=== PATIENT | female | born 1970 | race Caucasian/White ===

== ENCOUNTER 2017-05-11 12:37 | Inpatient (IN) | payer MEDICARE, MEDICAID ==
[~2017-05-11] VITALS: Ht 162.6 cm; Wt 67.6 kg
[2017-05-11 15:54] VITALS: BP 92/63
[2017-05-11] MEDS ORDERED: ZOLPIDEM TARTRATE 10 MG TABLET PO PRN (16:00)
[2017-05-11] MEDS ORDERED: HALOPERIDOL 5 MG TABLET PO PRN (16:00)
[2017-05-11] MEDS ORDERED: LORazepam 2 MG TABLET PO PRN (16:00)
[2017-05-11] MEDS ORDERED: LITH300C3 PO (16:25)
[2017-05-11] MEDS ORDERED: PNEUMOCOCCAL VACCINE POLYVALENT 0.5 ML VIAL [PPSV23] IM ONE (16:45)
[2017-05-12 05:47] VITALS: BP 130/80
[2017-05-12] MEDS: ARIPiprazole 10 MG TABLET PO SCH (09:00)
[2017-05-12] MEDS: LITHIUM CARBONATE 300 MG CAPSULE PO SCH ×3 (09:00→17:47)
[2017-05-12] MEDS ORDERED: IBUPROFEN 400 MG TABLET PO PRN (17:00)
[2017-05-12] MEDS ORDERED: ACETAMINOPHEN 325 MG TABLET PO PRN (17:00)
[2017-05-13] MEDS: ARIPiprazole 10 MG TABLET PO SCH (08:41)
[2017-05-13] MEDS: LITHIUM CARBONATE 300 MG CAPSULE PO SCH ×2 (08:41→16:23)
[2017-05-14] MEDS: LITHIUM CARBONATE 300 MG TABLET PO SCH ×2 (08:19→16:34)
[2017-05-14] MEDS: ARIPiprazole 10 MG TABLET PO SCH (08:20)
[2017-05-14] MEDS ORDERED: TUBERCULIN, PURIFIED PROTEIN DERIVATIVE 5 TU/0.1 ML SYG ID ONE (14:15)
[2017-05-15] MEDS: LITHIUM CARBONATE 300 MG TABLET PO SCH ×2 (09:00→16:13)
[2017-05-15] MEDS: ARIPiprazole 10 MG TABLET PO SCH (09:00)
[2017-05-16] MEDS: LITHIUM CARBONATE 300 MG TABLET PO SCH ×2 (08:42→16:41)
[2017-05-16] MEDS: ARIPiprazole 10 MG TABLET PO SCH (08:42)
[2017-05-17] MEDS: LITHIUM CARBONATE 300 MG TABLET PO SCH ×2 (09:00→16:43)
[2017-05-17] MEDS: ARIPiprazole 10 MG TABLET PO SCH (09:00)
[2017-05-18] MEDS ORDERED: ARIPiprazole 10 MG TABLET PO SCH (09:00)
[2017-05-18] MEDS: ARIPiprazole 15 MG TABLET PO SCH (09:19)
[2017-05-18] MEDS: LITHIUM CARBONATE 300 MG TABLET PO SCH ×2 (09:19→16:26)
[2017-05-18] MEDS: LORazepam 0.5 MG TABLET PO SCH (17:48)
[2017-05-19] MEDS: ARIPiprazole 15 MG TABLET PO SCH (09:32)
[2017-05-19] MEDS: LORazepam 0.5 MG TABLET PO SCH ×2 (09:32→16:41)
[2017-05-20] MEDS: LORazepam 0.5 MG TABLET PO SCH (08:29)
[2017-05-20] MEDS: ARIPiprazole 15 MG TABLET PO SCH (08:29)
[2017-05-20] MEDS ORDERED: ARIP15TA2 PO (11:24)
[2017-05-20] MEDS ORDERED: LORA0.5T2 PO (11:24)
== END 2017-05-20 17:00 | disposition home or self-care (01) | DRG 885 ==
LOC: B2X 16:01
PROVIDERS: ADMIT Psychiatry & Neurology Psychiatry; ATTEND Psychiatry & Neurology Psychiatry
DX: F20.0 Paranoid schizophrenia (principal); I95.9 Hypotension, unspecified; Z91.14 Patient's other noncompliance with medication regimen; I10 Essential (primary) hypertension; R45.87 Impulsiveness; Z79.899 Other long term (current) drug therapy

== ENCOUNTER 2017-05-23 12:40 | Inpatient (IN) | payer MEDICARE, MEDICAID ==
[~2017-05-23] VITALS: Ht 162.6 cm; Wt 70.3 kg
[~2017-05-23 12:40] MED LIST: ARIP15TA2 PO; LORA0.5T2 PO
[2017-05-23 13:32] LABS: HEMATOCRIT 31.4 % (36-46); HEMOGLOBIN 10.7 g/dL (12.0-16.0); MEAN CORPUSCULAR HEMOGLOBIN 31.8 pg (26.0-34.0); MEAN CORPUSCULAR HGB CONC 34.1 G/dL (31.0-37.0); MEAN CORPUSCULAR VOLUME 93 fL (80-100); PLATELET COUNT (AUTO) 363 K/uL (150-450); RED BLOOD CELL COUNT(AUTO) 3.37 MIL/uL (4.00-5.20); RED CELL DISTRIBUTION WIDTH 15.4 % (11.5-14.5)
[2017-05-23 13:33] LABS: GLUCOSE,POINT OF CARE 85 MG/DL (70-110)
[2017-05-23 13:40] LABS: ANION GAP 9 mmol/L (8-16); CALCIUM, TOTAL 9.2 mg/dL (8.8-10.5); CARBON DIOXIDE 25 mmol/L (22-29); CHLORIDE 101 mmol/L (98-107); CREATININE 0.53 mg/dL (0.60-1.30); GLOMERULAR FILTR. RATE CALC > 60 mL/min (>60); GLUCOSE,RANDOM 99 mg/dL (70-110); POTASSIUM 3.9 mmol/L (3.5-5.1); SODIUM SERUM 135 mmol/L (136-145); UREA NITROGEN, BLOOD 15 mg/dL (7-18)
[2017-05-23 13:46] LABS: ALANINE AMINOTRANSFERASE 302 U/L (12-78); ALBUMIN 2.7 g/dL (3.4-5.0); ASPARTATE AMINOTRANSFERASE 166 U/L (15-37); BILIRUBIN,TOTAL 10.7 mg/dL (0.1-1.0); TOTAL PROTEIN, SERUM 7.2 g/dL (6.4-8.2)
[2017-05-23 13:49] LABS: BAND NEUTROPHILS % (MANUAL) 1 % (1-5); EOSINOPHILS % (MANUAL) 3 % (1-6); LYMPHOCYTES % (MANUAL) 18 % (22-44); MONOCYTES % (MANUAL) 3 % (2-9); SEGMENTED NEUTROPHILS % 75 % (40-70)
[2017-05-23 13:50] LABS: PLATELET MORPHOLOGY COMMENT LARGE PLTS PRESENT
[2017-05-23 14:28] LABS: ALKALINE PHOSPHATASE 1694 U/L (46-116)
[2017-05-23 16:18] LABS: GLUCOSE, URINE (UA) NEGATIVE (NEGATIVE); KETONES,URINE TRACE mg/dL (NEGATIVE); LEUKOCYTE ESTERASE ,URINE MODERATE (NEGATIVE); NITRATE,URINE POSITIVE (NEGATIVE); OCCULT BLOOD,URINE NEGATIVE (NEGATIVE); PROTEIN,URINE TRACE (NEGATIVE)
[2017-05-23 16:45] LABS: CREATINE KINASE, TOTAL 54 U/L (26-192); LIPASE 38 U/L (73-393)
[2017-05-23 16:49] LABS: APPEARANCE,URINE HAZY (CLEAR); BILIRUBIN,URINE PRELIM. POSITIVE (NEGATIVE)
[2017-05-23 16:50] LABS: BACTERIA,URINE Moderate /HPF (None Seen); RBC,URINE 0-2 /HPF (0-2); SQUAMOUS EPITHELIAL CELL,UR Rare /LPF (None Seen)
[2017-05-23] MEDS ORDERED: CEPHALEXIN MONOHYDRATE 500 MG CAPSULE PO ONE (17:15)
[2017-05-23 18:59] LABS: AMPHET/METH SCREEN,URINE NEGATIVE (NEGATIVE); BARBITURATE SCREEN, URINE NEGATIVE (NEGATIVE); BENZODIAZEPINES SCREEN,URINE NEGATIVE (NEGATIVE); CANNABINOID SCREEN,URINE NEGATIVE (NEGATIVE); COCAINE SCREEN,URINE NEGATIVE (NEGATIVE); METHADONE SCREEN, URINE NEGATIVE (NEGATIVE); OPIATE SCREEN,URINE NEGATIVE (NEGATIVE)
[2017-05-23 19:00] LABS: PHENCYCLIDINE SCREEN,URINE NEGATIVE (NEGATIVE)
[2017-05-24] MEDS: CIPROFLOXACIN HCL 500 MG TABLET PO SCH ×2 (08:57→16:41)
[2017-05-24] MEDS: LORazepam 0.5 MG TABLET PO SCH (16:41)
[2017-05-24] MEDS ORDERED: LORazepam 0.5 MG TABLET PO SCH (17:00)
[2017-05-25 06:39] VITALS: BP 126/81
[2017-05-25 09:00] VITALS: BP 100/60
[2017-05-25] MEDS ORDERED: ARIPiprazole 15 MG TABLET PO SCH ×2 (09:00)
[2017-05-25] MEDS: LORazepam 0.5 MG TABLET PO SCH ×2 (09:28→17:30)
[2017-05-25] MEDS: CIPROFLOXACIN HCL 500 MG TABLET PO SCH ×2 (09:28→17:30)
[2017-05-25] MEDS: ARIPiprazole 15 MG TABLET PO SCH (09:28)
[2017-05-26 03:53] VITALS: BP 101/66
[2017-05-26] MEDS: CIPROFLOXACIN HCL 500 MG TABLET PO SCH ×2 (10:56→16:24)
[2017-05-26] MEDS: ARIPiprazole 15 MG TABLET PO SCH (10:56)
[2017-05-26] MEDS: LORazepam 0.5 MG TABLET PO SCH ×2 (10:57→16:24)
[2017-05-26] MEDS: RisperiDONE 1 MG TABLET PO SCH ×2 (10:57→16:24)
[2017-05-26 16:49] VITALS: BP 117/77
[2017-05-27] MEDS: HALOPERIDOL 5 MG TABLET PO PRN ×2 (04:47→21:05)
[2017-05-27] MEDS: ARIPiprazole 15 MG TABLET PO SCH (09:11)
[2017-05-27] MEDS: LORazepam 0.5 MG TABLET PO SCH ×2 (09:11→17:08)
[2017-05-27] MEDS: RisperiDONE 2 MG TABLET PO SCH ×2 (09:11→17:09)
[2017-05-27] MEDS: CIPROFLOXACIN HCL 500 MG TABLET PO SCH ×2 (09:11→17:08)
[2017-05-27 09:35] VITALS: BP 122/69
[2017-05-27] MEDS ORDERED: BARIUM SULFATE 0.1% SUSPENSION 450 ML BOTTLE ONE ×2 (13:41→13:45)
[2017-05-27] MEDS ORDERED: SODIUM CHLORIDE 0.9% 100 ML ONE (13:41)
[2017-05-27] MEDS ORDERED: IOVERSOL 350 MG/ML 100 ML VIAL ONE (13:41)
[2017-05-27] MEDS: LORazepam 2 MG TABLET PO PRN (21:05)
[2017-05-27 21:14] VITALS: BP 117/73
[2017-05-27] MEDS: ZOLPIDEM TARTRATE 10 MG TABLET PO PRN (22:09)
[2017-05-28 02:25] VITALS: BP 98/68
[2017-05-28 07:13] LABS: INR 1.1 (0.9-1.1); PROTHROMBIN TIME 11.2 SEC (9.4-11.6)
[2017-05-28 07:40] LABS: ALANINE AMINOTRANSFERASE 265 U/L (12-78); ALBUMIN 2.4 g/dL (3.4-5.0); ANION GAP 10 mmol/L (8-16); ASPARTATE AMINOTRANSFERASE 170 U/L (15-37); BILIRUBIN,TOTAL 9.3 mg/dL (0.1-1.0); CALCIUM, TOTAL 8.9 mg/dL (8.8-10.5); CARBON DIOXIDE 23 mmol/L (22-29); CHLORIDE 100 mmol/L (98-107); GLOMERULAR FILTR. RATE CALC > 60 mL/min (>60); GLUCOSE,RANDOM 122 mg/dL (70-110); POTASSIUM 3.8 mmol/L (3.5-5.1); SODIUM SERUM 133 mmol/L (136-145); TOTAL PROTEIN, SERUM 6.9 g/dL (6.4-8.2); UREA NITROGEN, BLOOD 14 mg/dL (7-18)
[2017-05-28 08:22] LABS: ALKALINE PHOSPHATASE 2073 U/L (46-116)
[2017-05-28] MEDS: LORazepam 0.5 MG TABLET PO SCH ×2 (09:24→17:03)
[2017-05-28] MEDS: RisperiDONE 2 MG TABLET PO SCH ×2 (09:24→17:03)
[2017-05-28] MEDS: ARIPiprazole 15 MG TABLET PO SCH (09:24)
[2017-05-28] MEDS: CIPROFLOXACIN HCL 500 MG TABLET PO SCH ×2 (09:24→17:03)
[2017-05-28 10:38] VITALS: BP 108/61
[2017-05-28] MEDS ORDERED: BARIUM SULFATE 0.1% SUSPENSION 450 ML BOTTLE ONE (11:01)
[2017-05-28] MEDS ORDERED: IOVERSOL 350 MG/ML 150 ML VIAL ONE (13:36)
[2017-05-28] MEDS ORDERED: SODIUM CHLORIDE 0.9% 100 ML ONE (13:36)
[2017-05-28 16:00] VITALS: BP 109/73
[2017-05-28] MEDS: HALOPERIDOL 5 MG TABLET PO PRN (20:57)
[2017-05-28] MEDS: LORazepam 2 MG TABLET PO PRN (20:57)
[2017-05-28] MEDS: ZOLPIDEM TARTRATE 10 MG TABLET PO PRN (22:56)
[2017-05-29 00:45] VITALS: BP 118/81
[2017-05-29 08:15] VITALS: BP 116/68
[2017-05-29] MEDS: CIPROFLOXACIN HCL 500 MG TABLET PO SCH ×2 (09:28→17:40)
[2017-05-29] MEDS: ARIPiprazole 15 MG TABLET PO SCH (09:28)
[2017-05-29] MEDS: RisperiDONE 2 MG TABLET PO SCH ×2 (09:28→17:41)
[2017-05-29] MEDS: LORazepam 0.5 MG TABLET PO SCH ×2 (09:28→17:41)
[2017-05-29 17:00] VITALS: BP 102/66
[2017-05-30 00:30] VITALS: BP 122/73
[2017-05-30] MEDS: LORazepam 0.5 MG TABLET PO SCH ×2 (09:07→16:50)
[2017-05-30] MEDS: ARIPiprazole 15 MG TABLET PO SCH (09:07)
[2017-05-30] MEDS: RisperiDONE 2 MG TABLET PO SCH (09:07)
[2017-05-30] MEDS: CIPROFLOXACIN HCL 500 MG TABLET PO SCH ×2 (09:07→16:50)
[2017-05-30] MEDS ORDERED: GADOBUTROL 1 MMOL/ML 10 ML VIAL IVP ONE (14:09)
[2017-05-30] MEDS: RisperiDONE 3 MG TABLET PO SCH (16:50)
[2017-05-31] MEDS: ARIPiprazole 15 MG TABLET PO SCH (09:00)
[2017-05-31] MEDS: RisperiDONE 3 MG TABLET PO SCH ×2 (09:00→16:30)
[2017-05-31] MEDS: LORazepam 0.5 MG TABLET PO SCH ×2 (09:00→16:30)
[2017-06-01] MEDS: RisperiDONE 3 MG TABLET PO SCH ×2 (09:29→15:57)
[2017-06-01] MEDS: LORazepam 0.5 MG TABLET PO SCH ×2 (09:29→15:57)
[2017-06-01] MEDS: ARIPiprazole 15 MG TABLET PO SCH (09:29)
[2017-06-02 03:11] VITALS: BP 97/66
[2017-06-02 06:59] LABS: ALANINE AMINOTRANSFERASE 274 U/L (12-78); ALBUMIN 2.3 g/dL (3.4-5.0); ANION GAP 9 mmol/L (8-16); ASPARTATE AMINOTRANSFERASE 174 U/L (15-37); BILIRUBIN,TOTAL 8.6 mg/dL (0.1-1.0); CARBON DIOXIDE 25 mmol/L (22-29); CHLORIDE 100 mmol/L (98-107); CREATININE 0.43 mg/dL (0.60-1.30); GLOMERULAR FILTR. RATE CALC > 60 mL/min (>60); GLUCOSE,RANDOM 80 mg/dL (70-110); POTASSIUM 3.8 mmol/L (3.5-5.1); SODIUM SERUM 134 mmol/L (136-145); TOTAL PROTEIN, SERUM 6.6 g/dL (6.4-8.2); UREA NITROGEN, BLOOD 15 mg/dL (7-18)
[2017-06-02 07:46] LABS: ALKALINE PHOSPHATASE 2175 U/L (46-116)
[2017-06-02 08:30] VITALS: BP 124/72
[2017-06-02] MEDS: RisperiDONE 3 MG TABLET PO SCH ×2 (09:28→16:17)
[2017-06-02] MEDS: ARIPiprazole 15 MG TABLET PO SCH (09:29)
[2017-06-02] MEDS: LORazepam 0.5 MG TABLET PO SCH ×2 (09:29→16:17)
[2017-06-03 01:05] VITALS: BP 136/91
[2017-06-03] MEDS: ZOLPIDEM TARTRATE 10 MG TABLET PO PRN (01:09)
[2017-06-03] MEDS: LORazepam 2 MG TABLET PO PRN ×2 (01:09→20:27)
[2017-06-03] MEDS: RisperiDONE 3 MG TABLET PO SCH ×2 (08:26→16:09)
[2017-06-03] MEDS: ARIPiprazole 15 MG TABLET PO SCH (08:26)
[2017-06-03] MEDS: LORazepam 0.5 MG TABLET PO SCH ×2 (08:26→16:09)
[2017-06-03 08:46] VITALS: BP 126/78
[2017-06-03] MEDS: URSODIOL 500 MG TABLET PO SCH ×2 (12:35→16:09)
[2017-06-03 17:10] VITALS: BP 121/74
[2017-06-04 02:10] VITALS: BP 96/56
[2017-06-04] MEDS: ARIPiprazole 15 MG TABLET PO SCH (09:01)
[2017-06-04] MEDS: LORazepam 0.5 MG TABLET PO SCH ×2 (09:02→17:01)
[2017-06-04] MEDS: RisperiDONE 3 MG TABLET PO SCH ×2 (09:02→17:01)
[2017-06-04] MEDS: URSODIOL 500 MG TABLET PO SCH ×3 (09:02→17:01)
[2017-06-04 19:44] VITALS: BP 116/76
[2017-06-05] MEDS: LORazepam 2 MG TABLET PO PRN (04:51)
[2017-06-05] MEDS: HALOPERIDOL 5 MG TABLET PO PRN (04:51)
[2017-06-05 05:39] VITALS: BP 121/78
[2017-06-05] MEDS: RisperiDONE 3 MG TABLET PO SCH ×2 (08:15→16:20)
[2017-06-05] MEDS: ARIPiprazole 15 MG TABLET PO SCH (08:15)
[2017-06-05] MEDS: LORazepam 0.5 MG TABLET PO SCH ×2 (08:15→16:20)
[2017-06-05] MEDS: URSODIOL 500 MG TABLET PO SCH ×3 (08:15→16:20)
[2017-06-05 18:44] VITALS: BP 112/74
[2017-06-06] MEDS: ZOLPIDEM TARTRATE 10 MG TABLET PO PRN (00:51)
[2017-06-06] MEDS: HALOPERIDOL 5 MG TABLET PO PRN (00:51)
[2017-06-06 00:53] VITALS: BP 108/72
[2017-06-06] MEDS: LORazepam 2 MG TABLET PO PRN (04:38)
[2017-06-06] MEDS: RisperiDONE 3 MG TABLET PO SCH ×2 (08:23→16:30)
[2017-06-06] MEDS: ARIPiprazole 15 MG TABLET PO SCH (08:24)
[2017-06-06] MEDS: URSODIOL 500 MG TABLET PO SCH ×3 (08:24→16:30)
[2017-06-06] MEDS: LORazepam 0.5 MG TABLET PO SCH ×2 (08:24→16:30)
[2017-06-06 09:35] VITALS: BP 137/84
[2017-06-07] MEDS: ZOLPIDEM TARTRATE 10 MG TABLET PO PRN (00:01)
[2017-06-07] MEDS: LORazepam 2 MG TABLET PO PRN (00:01)
[2017-06-07 00:03] VITALS: BP 123/65
[2017-06-07] MEDS: RisperiDONE 3 MG TABLET PO SCH ×2 (07:51→16:13)
[2017-06-07] MEDS: ARIPiprazole 15 MG TABLET PO SCH (07:51)
[2017-06-07] MEDS: LORazepam 0.5 MG TABLET PO SCH ×2 (07:51→16:13)
[2017-06-07] MEDS: URSODIOL 500 MG TABLET PO SCH ×3 (07:52→16:13)
[2017-06-07 10:21] VITALS: BP 90/55
[2017-06-07] MEDS: BACITRACIN 28.4 GM OINTMENT TP SCH (16:13)
[2017-06-07 19:49] VITALS: BP 122/72
[2017-06-07] MEDS: BENZOCAINE/MENTHOL LOZENGE [8 LOZENGES/PACKET] PO PRN (23:40)
[2017-06-08 00:10] VITALS: BP 110/71
[2017-06-08] MEDS: LORazepam 2 MG TABLET PO PRN ×3 (00:33→20:25)
[2017-06-08] MEDS: RisperiDONE 3 MG TABLET PO SCH ×2 (08:39→16:21)
[2017-06-08] MEDS: LORazepam 0.5 MG TABLET PO SCH ×2 (08:39→16:21)
[2017-06-08] MEDS: ARIPiprazole 15 MG TABLET PO SCH (08:39)
[2017-06-08] MEDS: BENZOCAINE/MENTHOL LOZENGE [8 LOZENGES/PACKET] PO PRN ×2 (08:40→16:45)
[2017-06-08] MEDS: BACITRACIN 28.4 GM OINTMENT TP SCH ×2 (08:40→16:22)
[2017-06-08] MEDS: URSODIOL 500 MG TABLET PO SCH ×3 (08:40→16:21)
[2017-06-08] MEDS: HALOPERIDOL 5 MG TABLET PO PRN (10:02)
[2017-06-08 17:00] VITALS: BP 122/71
[2017-06-09 02:00] VITALS: BP 124/76
[2017-06-09] MEDS: BENZOCAINE/MENTHOL LOZENGE [8 LOZENGES/PACKET] PO PRN ×2 (02:53→15:42)
[2017-06-09 08:05] VITALS: BP 96/64
[2017-06-09] MEDS: ARIPiprazole 15 MG TABLET PO SCH (08:26)
[2017-06-09] MEDS: LORazepam 0.5 MG TABLET PO SCH ×2 (08:27→17:08)
[2017-06-09] MEDS: RisperiDONE 3 MG TABLET PO SCH ×2 (08:27→17:08)
[2017-06-09] MEDS: URSODIOL 500 MG TABLET PO SCH ×3 (08:27→17:08)
[2017-06-09] MEDS: BACITRACIN 28.4 GM OINTMENT TP SCH ×2 (09:00→17:07)
[2017-06-09 17:03] VITALS: BP 114/75
[2017-06-09] MEDS: HALOPERIDOL 5 MG TABLET PO PRN (19:14)
[2017-06-09] MEDS: LORazepam 2 MG TABLET PO PRN (19:14)
[2017-06-10] MEDS: VIT E ACET/GLY/DIMETH/WATER 236 ML LOTION TP PRN (01:41)
[2017-06-10] MEDS: LORazepam 2 MG TABLET PO PRN (01:42)
[2017-06-10] MEDS: ZOLPIDEM TARTRATE 10 MG TABLET PO PRN ×2 (01:42→20:24)
[2017-06-10] MEDS: BENZOCAINE/MENTHOL LOZENGE [8 LOZENGES/PACKET] PO PRN ×2 (02:17→16:38)
[2017-06-10 02:42] VITALS: BP 106/64
[2017-06-10 08:00] VITALS: BP 112/61
[2017-06-10] MEDS: LORazepam 0.5 MG TABLET PO SCH ×2 (10:30→16:01)
[2017-06-10] MEDS: URSODIOL 500 MG TABLET PO SCH ×3 (10:30→16:01)
[2017-06-10] MEDS: ARIPiprazole 15 MG TABLET PO SCH (10:31)
[2017-06-10] MEDS: RisperiDONE 3 MG TABLET PO SCH ×2 (10:31→16:01)
[2017-06-10] MEDS: BACITRACIN 28.4 GM OINTMENT TP SCH ×2 (12:12→16:01)
[2017-06-10 22:20] VITALS: BP 102/68
[2017-06-11 02:42] VITALS: BP 117/77
[2017-06-11] MEDS: BENZOCAINE/MENTHOL LOZENGE [8 LOZENGES/PACKET] PO PRN (03:01)
[2017-06-11] MEDS: LORazepam 0.5 MG TABLET PO SCH ×2 (08:12→16:57)
[2017-06-11] MEDS: RisperiDONE 3 MG TABLET PO SCH ×2 (08:12→16:58)
[2017-06-11] MEDS: URSODIOL 500 MG TABLET PO SCH ×3 (08:12→16:59)
[2017-06-11] MEDS: ARIPiprazole 15 MG TABLET PO SCH (08:12)
[2017-06-11] MEDS: BACITRACIN 28.4 GM OINTMENT TP SCH ×2 (08:13→16:59)
[2017-06-11 08:50] VITALS: BP 125/69
[2017-06-12 01:21] VITALS: BP 117/73
[2017-06-12] MEDS: LORazepam 0.5 MG TABLET PO SCH ×2 (08:59→16:16)
[2017-06-12] MEDS: RisperiDONE 3 MG TABLET PO SCH ×2 (08:59→16:16)
[2017-06-12] MEDS: BACITRACIN 28.4 GM OINTMENT TP SCH ×2 (09:00→16:17)
[2017-06-12] MEDS: URSODIOL 500 MG TABLET PO SCH ×3 (09:00→16:17)
[2017-06-12] MEDS: BENZOCAINE/MENTHOL LOZENGE [8 LOZENGES/PACKET] PO PRN (09:00)
[2017-06-12] MEDS: ARIPiprazole 15 MG TABLET PO SCH (09:00)
[2017-06-13 01:29] VITALS: BP 95/56
[2017-06-13] MEDS: ZOLPIDEM TARTRATE 10 MG TABLET PO PRN ×2 (02:07→20:07)
[2017-06-13] MEDS: RisperiDONE 3 MG TABLET PO SCH ×2 (08:18→16:45)
[2017-06-13] MEDS: LORazepam 0.5 MG TABLET PO SCH ×2 (08:18→16:45)
[2017-06-13] MEDS: ARIPiprazole 15 MG TABLET PO SCH (08:18)
[2017-06-13] MEDS: URSODIOL 500 MG TABLET PO SCH ×3 (10:10→17:34)
[2017-06-13] MEDS: MUPIROCIN CALCIUM 2% 22 GM OINTMENT NASAL SCH (16:45)
[2017-06-14] MEDS: ARIPiprazole 15 MG TABLET PO SCH (08:19)
[2017-06-14] MEDS: RisperiDONE 3 MG TABLET PO SCH ×2 (08:20→16:42)
[2017-06-14] MEDS: URSODIOL 500 MG TABLET PO SCH ×3 (08:20→16:42)
[2017-06-14] MEDS: LORazepam 0.5 MG TABLET PO SCH ×2 (08:21→16:42)
[2017-06-14] MEDS: MUPIROCIN CALCIUM 2% 22 GM OINTMENT NASAL SCH ×2 (09:00→16:46)
[2017-06-14] MEDS ORDERED: ACETAMINOPHEN 325 MG TABLET PO PRN (17:30)
[2017-06-14 21:58] VITALS: BP 131/84
[2017-06-14] MEDS: ACETAMINOPHEN 325 MG TABLET PO PRN (21:58)
[2017-06-15] MEDS: MUPIROCIN CALCIUM 2% 22 GM OINTMENT NASAL SCH ×2 (09:00→16:18)
[2017-06-15] MEDS: RisperiDONE 3 MG TABLET PO SCH ×2 (09:01→16:17)
[2017-06-15] MEDS: LORazepam 0.5 MG TABLET PO SCH ×2 (09:01→16:17)
[2017-06-15] MEDS: ARIPiprazole 15 MG TABLET PO SCH (09:01)
[2017-06-15] MEDS: URSODIOL 500 MG TABLET PO SCH ×3 (09:01→16:18)
[2017-06-15] MEDS: BENZOCAINE/MENTHOL LOZENGE [8 LOZENGES/PACKET] PO PRN (12:29)
[2017-06-15 14:43] VITALS: BP 135/92
[2017-06-16] MEDS: URSODIOL 500 MG TABLET PO SCH ×3 (08:07→16:31)
[2017-06-16] MEDS: ARIPiprazole 15 MG TABLET PO SCH (08:07)
[2017-06-16] MEDS: MUPIROCIN CALCIUM 2% 22 GM OINTMENT NASAL SCH ×3 (08:07→17:00)
[2017-06-16] MEDS: LORazepam 0.5 MG TABLET PO SCH ×2 (08:07→16:31)
[2017-06-16] MEDS: RisperiDONE 3 MG TABLET PO SCH ×2 (08:07→16:31)
[2017-06-17] MEDS: RisperiDONE 3 MG TABLET PO SCH ×2 (08:33→16:29)
[2017-06-17] MEDS: LORazepam 0.5 MG TABLET PO SCH ×2 (08:33→16:29)
[2017-06-17] MEDS: MUPIROCIN CALCIUM 2% 22 GM OINTMENT NASAL SCH ×2 (08:34→16:29)
[2017-06-17] MEDS: ARIPiprazole 15 MG TABLET PO SCH (08:34)
[2017-06-17] MEDS: URSODIOL 500 MG TABLET PO SCH ×3 (10:35→16:29)
[2017-06-18] MEDS: ACETAMINOPHEN 325 MG TABLET PO PRN (04:34)
[2017-06-18] MEDS: LORazepam 0.5 MG TABLET PO SCH ×2 (08:24→16:30)
[2017-06-18] MEDS: RisperiDONE 3 MG TABLET PO SCH ×2 (08:24→16:30)
[2017-06-18] MEDS: ARIPiprazole 15 MG TABLET PO SCH (08:24)
[2017-06-18] MEDS: URSODIOL 500 MG TABLET PO SCH ×3 (08:24→16:30)
[2017-06-18] MEDS: MUPIROCIN CALCIUM 2% 22 GM OINTMENT NASAL SCH (08:31)
[2017-06-18] MEDS: BENZOCAINE/MENTHOL LOZENGE [8 LOZENGES/PACKET] PO PRN (11:28)
[2017-06-18] MEDS: HALOPERIDOL 5 MG TABLET PO PRN (12:21)
[2017-06-19] MEDS: BENZOCAINE/MENTHOL LOZENGE [8 LOZENGES/PACKET] PO PRN ×2 (01:11→19:53)
[2017-06-19 01:13] VITALS: BP 132/88
[2017-06-19] MEDS: RisperiDONE 3 MG TABLET PO SCH ×2 (08:42→16:05)
[2017-06-19] MEDS: LORazepam 0.5 MG TABLET PO SCH ×2 (08:43→16:05)
[2017-06-19] MEDS: ARIPiprazole 15 MG TABLET PO SCH (08:43)
[2017-06-19] MEDS: URSODIOL 500 MG TABLET PO SCH ×3 (08:43→16:06)
[2017-06-20 01:13] VITALS: BP 100/66
[2017-06-20 01:50] VITALS: BP 134/90
[2017-06-20] MEDS: ACETAMINOPHEN 325 MG TABLET PO PRN (01:57)
[2017-06-20] MEDS: LORazepam 0.5 MG TABLET PO SCH ×2 (08:43→16:13)
[2017-06-20] MEDS: RisperiDONE 3 MG TABLET PO SCH ×2 (08:43→16:13)
[2017-06-20] MEDS: ARIPiprazole 15 MG TABLET PO SCH (08:43)
[2017-06-20] MEDS: URSODIOL 500 MG TABLET PO SCH ×3 (08:44→16:13)
[2017-06-20] MEDS: BENZOCAINE/MENTHOL LOZENGE [8 LOZENGES/PACKET] PO PRN (15:55)
[2017-06-20] MEDS: DOCUSATE SODIUM 100 MG CAPSULE PO PRN (15:56)
[2017-06-20 17:00] VITALS: BP 140/83
[2017-06-21 05:20] VITALS: BP 113/71
[2017-06-21] MEDS: ACETAMINOPHEN 325 MG TABLET PO PRN (05:36)
[2017-06-21] MEDS: DOCUSATE SODIUM 100 MG CAPSULE PO PRN (05:36)
[2017-06-21 07:00] LABS: ALANINE AMINOTRANSFERASE 179 U/L (12-78); ALBUMIN 2.6 g/dL (3.4-5.0); ALKALINE PHOSPHATASE 958 U/L (46-116); ANION GAP 8 mmol/L (8-16); ASPARTATE AMINOTRANSFERASE 118 U/L (15-37); BILIRUBIN,TOTAL 7.8 mg/dL (0.1-1.0); CALCIUM, TOTAL 8.9 mg/dL (8.8-10.5); CARBON DIOXIDE 23 mmol/L (22-29); CHLORIDE 98 mmol/L (98-107); CREATININE 0.52 mg/dL (0.60-1.30); GLOMERULAR FILTR. RATE CALC > 60 mL/min (>60); GLUCOSE,RANDOM 100 mg/dL (70-110); SODIUM SERUM 129 mmol/L (136-145); TOTAL PROTEIN, SERUM 6.8 g/dL (6.4-8.2); UREA NITROGEN, BLOOD 15 mg/dL (7-18)
[2017-06-21] MEDS: URSODIOL 500 MG TABLET PO SCH ×3 (09:04→16:26)
[2017-06-21] MEDS: LORazepam 0.5 MG TABLET PO SCH ×2 (09:04→16:26)
[2017-06-21] MEDS: RisperiDONE 3 MG TABLET PO SCH ×2 (09:04→16:26)
[2017-06-21] MEDS: ARIPiprazole 15 MG TABLET PO SCH (09:05)
[2017-06-21] MEDS: BENZOCAINE/MENTHOL LOZENGE [8 LOZENGES/PACKET] PO PRN (15:48)
[2017-06-21 22:10] VITALS: BP 114/78
[2017-06-21] MEDS: ZOLPIDEM TARTRATE 10 MG TABLET PO PRN (22:22)
[2017-06-22 05:25] VITALS: BP 98/60
[2017-06-22] MEDS: ARIPiprazole 15 MG TABLET PO SCH (08:04)
[2017-06-22] MEDS: LORazepam 0.5 MG TABLET PO SCH ×2 (08:04→16:40)
[2017-06-22] MEDS: RisperiDONE 3 MG TABLET PO SCH ×2 (08:04→16:40)
[2017-06-22] MEDS: URSODIOL 500 MG TABLET PO SCH ×3 (08:05→17:07)
[2017-06-22 09:34] VITALS: BP 112/69
[2017-06-23 04:05] VITALS: BP 110/60
[2017-06-23] MEDS: VIT E ACET/GLY/DIMETH/WATER 236 ML LOTION TP PRN (04:18)
[2017-06-23] MEDS: ACETAMINOPHEN 325 MG TABLET PO PRN (04:18)
[2017-06-23] MEDS: ARIPiprazole 15 MG TABLET PO SCH (08:01)
[2017-06-23] MEDS: URSODIOL 500 MG TABLET PO SCH ×3 (08:01→17:20)
[2017-06-23] MEDS: RisperiDONE 3 MG TABLET PO SCH ×2 (08:01→17:21)
[2017-06-23] MEDS: LORazepam 0.5 MG TABLET PO SCH ×2 (08:01→17:21)
[2017-06-23 09:43] VITALS: BP 92/58
[2017-06-23] MEDS: SODIUM CHLORIDE 1 GM TABLET PO SCH ×2 (13:09→17:21)
[2017-06-24] MEDS: LORazepam 2 MG TABLET PO PRN (02:06)
[2017-06-24] MEDS: ZOLPIDEM TARTRATE 10 MG TABLET PO PRN (02:06)
[2017-06-24 02:15] VITALS: BP 118/68
[2017-06-24] MEDS: SODIUM CHLORIDE 1 GM TABLET PO SCH ×3 (08:17→16:55)
[2017-06-24] MEDS: RisperiDONE 3 MG TABLET PO SCH ×2 (08:17→16:55)
[2017-06-24] MEDS: LORazepam 0.5 MG TABLET PO SCH ×2 (08:17→16:54)
[2017-06-24] MEDS: ARIPiprazole 15 MG TABLET PO SCH (08:17)
[2017-06-24] MEDS: URSODIOL 500 MG TABLET PO SCH ×3 (08:17→16:55)
[2017-06-25 02:52] VITALS: BP 120/74
[2017-06-25] MEDS: LORazepam 2 MG TABLET PO PRN (02:52)
[2017-06-25] MEDS: ZOLPIDEM TARTRATE 10 MG TABLET PO PRN (02:52)
[2017-06-25] MEDS: URSODIOL 500 MG TABLET PO SCH ×3 (08:09→17:32)
[2017-06-25] MEDS: SODIUM CHLORIDE 1 GM TABLET PO SCH (08:09)
[2017-06-25] MEDS: LORazepam 0.5 MG TABLET PO SCH ×2 (08:09→17:32)
[2017-06-25] MEDS: RisperiDONE 3 MG TABLET PO SCH ×2 (08:09→17:32)
[2017-06-25] MEDS: ARIPiprazole 15 MG TABLET PO SCH (08:10)
[2017-06-25 08:44] VITALS: BP 133/75
[2017-06-25 16:58] VITALS: BP 142/87
[2017-06-26] MEDS: ZOLPIDEM TARTRATE 10 MG TABLET PO PRN (02:04)
[2017-06-26 02:05] VITALS: BP 123/78
[2017-06-26] MEDS: LORazepam 2 MG TABLET PO PRN ×2 (02:05→14:29)
[2017-06-26] MEDS: URSODIOL 500 MG TABLET PO SCH ×3 (08:12→16:36)
[2017-06-26] MEDS: ARIPiprazole 15 MG TABLET PO SCH (08:12)
[2017-06-26] MEDS: LORazepam 0.5 MG TABLET PO SCH ×2 (08:12→16:36)
[2017-06-26] MEDS: RisperiDONE 3 MG TABLET PO SCH ×2 (08:12→16:37)
[2017-06-26 16:45] VITALS: BP 127/77
[2017-06-27 01:05] VITALS: BP 106/69
[2017-06-27] MEDS: ARIPiprazole 15 MG TABLET PO SCH (08:13)
[2017-06-27] MEDS: RisperiDONE 3 MG TABLET PO SCH ×2 (08:14→16:45)
[2017-06-27] MEDS: URSODIOL 500 MG TABLET PO SCH ×3 (08:14→16:45)
[2017-06-27] MEDS: LORazepam 0.5 MG TABLET PO SCH ×2 (08:14→16:45)
[2017-06-27] MEDS: ZOLPIDEM TARTRATE 10 MG TABLET PO PRN (20:58)
[2017-06-28 06:47] VITALS: BP 95/61
[2017-06-28 08:00] VITALS: BP 102/59
[2017-06-28] MEDS: ARIPiprazole 15 MG TABLET PO SCH (09:11)
[2017-06-28] MEDS: RisperiDONE 3 MG TABLET PO SCH ×2 (09:13→15:53)
[2017-06-28] MEDS: URSODIOL 500 MG TABLET PO SCH ×3 (09:13→15:54)
[2017-06-28] MEDS: LORazepam 0.5 MG TABLET PO SCH ×2 (09:13→15:53)
[2017-06-28] MEDS: DOCUSATE SODIUM 100 MG CAPSULE PO PRN ×2 (12:49→22:49)
[2017-06-28 18:53] VITALS: BP 121/76
[2017-06-28] MEDS: ZOLPIDEM TARTRATE 10 MG TABLET PO PRN (20:45)
[2017-06-29 02:04] VITALS: BP 112/77
[2017-06-29] MEDS: LORazepam 2 MG TABLET PO PRN (02:04)
[2017-06-29] MEDS: RisperiDONE 3 MG TABLET PO SCH ×2 (08:25→16:21)
[2017-06-29] MEDS: URSODIOL 500 MG TABLET PO SCH ×3 (08:25→16:21)
[2017-06-29] MEDS: LORazepam 0.5 MG TABLET PO SCH ×2 (08:25→16:21)
[2017-06-29] MEDS: ARIPiprazole 15 MG TABLET PO SCH (08:26)
[2017-06-29 10:10] VITALS: BP 100/60
[2017-06-29] MEDS: DOCUSATE SODIUM 100 MG CAPSULE PO PRN (14:29)
[2017-06-29 16:51] VITALS: BP 112/65
[2017-06-30 01:20] VITALS: BP 97/75
[2017-06-30] MEDS: LORazepam 2 MG TABLET PO PRN (01:26)
[2017-06-30] MEDS: ZOLPIDEM TARTRATE 10 MG TABLET PO PRN (01:26)
[2017-06-30] MEDS: DOCUSATE SODIUM 100 MG CAPSULE PO PRN (01:28)
[2017-06-30 07:46] LABS: ALANINE AMINOTRANSFERASE 150 U/L (12-78); ALBUMIN 2.4 g/dL (3.4-5.0); ALKALINE PHOSPHATASE 774 U/L (46-116); ANION GAP 11 mmol/L (8-16); ASPARTATE AMINOTRANSFERASE 95 U/L (15-37); BILIRUBIN,TOTAL 6.7 mg/dL (0.1-1.0); CALCIUM, TOTAL 9.1 mg/dL (8.8-10.5); CARBON DIOXIDE 23 mmol/L (22-29); CHLORIDE 105 mmol/L (98-107); CREATININE 0.42 mg/dL (0.60-1.30); GLOMERULAR FILTR. RATE CALC > 60 mL/min (>60); GLUCOSE,RANDOM 84 mg/dL (70-110); POTASSIUM 3.9 mmol/L (3.5-5.1); SODIUM SERUM 139 mmol/L (136-145); TOTAL PROTEIN, SERUM 6.2 g/dL (6.4-8.2); UREA NITROGEN, BLOOD 16 mg/dL (7-18)
[2017-06-30] MEDS: LORazepam 0.5 MG TABLET PO SCH ×2 (07:53→17:40)
[2017-06-30] MEDS: ARIPiprazole 15 MG TABLET PO SCH (07:53)
[2017-06-30] MEDS: RisperiDONE 3 MG TABLET PO SCH ×2 (07:53→17:40)
[2017-06-30] MEDS: URSODIOL 500 MG TABLET PO SCH ×3 (07:53→17:40)
[2017-06-30 09:03] VITALS: BP 123/79
[2017-06-30 16:14] VITALS: BP 110/79
[2017-07-01 02:00] VITALS: BP 100/68
[2017-07-01] MEDS: ZOLPIDEM TARTRATE 10 MG TABLET PO PRN (02:06)
[2017-07-01] MEDS: LORazepam 2 MG TABLET PO PRN ×2 (02:06→22:32)
[2017-07-01] MEDS: URSODIOL 500 MG TABLET PO SCH ×3 (08:25→16:06)
[2017-07-01] MEDS: RisperiDONE 3 MG TABLET PO SCH ×2 (08:25→16:06)
[2017-07-01] MEDS: LORazepam 0.5 MG TABLET PO SCH ×2 (08:25→16:06)
[2017-07-01] MEDS: ARIPiprazole 15 MG TABLET PO SCH (08:25)
[2017-07-01] MEDS: DOCUSATE SODIUM 100 MG CAPSULE PO PRN ×2 (13:34→21:18)
[2017-07-01 18:37] VITALS: BP 121/62
[2017-07-01] MEDS: ACETAMINOPHEN 325 MG TABLET PO PRN (18:40)
[2017-07-02] MEDS: LORazepam 0.5 MG TABLET PO SCH ×2 (08:22→16:07)
[2017-07-02] MEDS: DOCUSATE SODIUM 100 MG CAPSULE PO PRN ×2 (08:22→21:22)
[2017-07-02] MEDS: RisperiDONE 3 MG TABLET PO SCH ×2 (08:22→16:07)
[2017-07-02] MEDS: URSODIOL 500 MG TABLET PO SCH ×3 (08:22→23:31)
[2017-07-02] MEDS: ARIPiprazole 15 MG TABLET PO SCH (08:22)
[2017-07-02 16:55] VITALS: BP 134/85
[2017-07-02] MEDS: ZOLPIDEM TARTRATE 10 MG TABLET PO PRN (21:22)
[2017-07-03 08:00] VITALS: BP 114/69
[2017-07-03] MEDS: LORazepam 0.5 MG TABLET PO SCH ×2 (08:06→16:20)
[2017-07-03] MEDS: RisperiDONE 3 MG TABLET PO SCH ×2 (08:06→16:20)
[2017-07-03] MEDS: URSODIOL 500 MG TABLET PO SCH ×3 (08:06→16:21)
[2017-07-03] MEDS: ARIPiprazole 15 MG TABLET PO SCH (08:06)
[2017-07-03] MEDS: LORazepam 2 MG TABLET PO PRN (08:43)
[2017-07-03 16:17] VITALS: BP 132/79
[2017-07-03] MEDS: ACETAMINOPHEN 325 MG TABLET PO PRN (16:21)
[2017-07-03] MEDS: DOCUSATE SODIUM 100 MG CAPSULE PO PRN (20:54)
[2017-07-03] MEDS: ZOLPIDEM TARTRATE 10 MG TABLET PO PRN (20:54)
[2017-07-04] MEDS: LORazepam 2 MG TABLET PO PRN ×2 (04:55→12:53)
[2017-07-04 04:57] VITALS: BP 105/71
[2017-07-04] MEDS: DOCUSATE SODIUM 100 MG CAPSULE PO PRN (09:02)
[2017-07-04] MEDS: ARIPiprazole 15 MG TABLET PO SCH (09:02)
[2017-07-04] MEDS: LORazepam 0.5 MG TABLET PO SCH ×2 (09:02→16:17)
[2017-07-04] MEDS: URSODIOL 500 MG TABLET PO SCH ×3 (09:02→16:17)
[2017-07-04] MEDS: RisperiDONE 3 MG TABLET PO SCH ×2 (09:02→16:17)
[2017-07-04] MEDS: HALOPERIDOL 5 MG TABLET PO PRN (12:53)
[2017-07-04 16:22] VITALS: BP 108/69
[2017-07-05 00:05] VITALS: BP 117/75
[2017-07-05] MEDS: ZOLPIDEM TARTRATE 10 MG TABLET PO PRN ×2 (00:12→20:35)
[2017-07-05 08:00] VITALS: BP 107/56
[2017-07-05] MEDS: LORazepam 0.5 MG TABLET PO SCH ×2 (08:15→16:37)
[2017-07-05] MEDS: ARIPiprazole 15 MG TABLET PO SCH (08:15)
[2017-07-05] MEDS: URSODIOL 500 MG TABLET PO SCH ×3 (08:15→16:37)
[2017-07-05] MEDS: RisperiDONE 3 MG TABLET PO SCH ×2 (08:15→16:37)
[2017-07-05 16:17] VITALS: BP 105/68
[2017-07-05] MEDS: DOCUSATE SODIUM 100 MG CAPSULE PO PRN (19:22)
[2017-07-05] MEDS: HALOPERIDOL 5 MG TABLET PO PRN (21:51)
[2017-07-06 01:40] VITALS: BP 115/72
[2017-07-06] MEDS: LORazepam 2 MG TABLET PO PRN (01:40)
[2017-07-06] MEDS: HALOPERIDOL 5 MG TABLET PO PRN (02:01)
[2017-07-06] MEDS: RisperiDONE 3 MG TABLET PO SCH ×2 (08:09→16:00)
[2017-07-06] MEDS: LORazepam 0.5 MG TABLET PO SCH ×2 (08:09→16:00)
[2017-07-06] MEDS: URSODIOL 500 MG TABLET PO SCH ×3 (08:09→16:00)
[2017-07-06] MEDS: ARIPiprazole 15 MG TABLET PO SCH (08:09)
[2017-07-06 08:20] LABS: ALANINE AMINOTRANSFERASE 167 U/L (12-78); ALKALINE PHOSPHATASE 853 U/L (46-116); ANION GAP 8 mmol/L (8-16); ASPARTATE AMINOTRANSFERASE 108 U/L (15-37); BILIRUBIN,TOTAL 7.1 mg/dL (0.1-1.0); CALCIUM, TOTAL 9.4 mg/dL (8.8-10.5); CARBON DIOXIDE 26 mmol/L (22-29); CHLORIDE 100 mmol/L (98-107); CREATININE 0.49 mg/dL (0.60-1.30); GLOMERULAR FILTR. RATE CALC > 60 mL/min (>60); GLUCOSE,RANDOM 95 mg/dL (70-110); SODIUM SERUM 134 mmol/L (136-145); TOTAL PROTEIN, SERUM 7.7 g/dL (6.4-8.2); UREA NITROGEN, BLOOD 18 mg/dL (7-18)
[2017-07-06 10:19] VITALS: BP 135/80
[2017-07-06 17:26] VITALS: BP 160/85
[2017-07-06] MEDS: ACETAMINOPHEN 325 MG TABLET PO PRN (17:26)
[2017-07-06] MEDS: DOCUSATE SODIUM 100 MG CAPSULE PO PRN (20:06)
[2017-07-06] MEDS: ZOLPIDEM TARTRATE 10 MG TABLET PO PRN (20:06)
[2017-07-07 00:03] VITALS: BP 133/86
[2017-07-07 03:30] VITALS: BP 146/82
[2017-07-07] MEDS: ACETAMINOPHEN 325 MG TABLET PO PRN ×3 (03:31→21:36)
[2017-07-07] MEDS: LORazepam 0.5 MG TABLET PO SCH ×2 (08:17→16:06)
[2017-07-07] MEDS: ARIPiprazole 15 MG TABLET PO SCH (08:17)
[2017-07-07] MEDS: RisperiDONE 3 MG TABLET PO SCH ×2 (08:17→16:06)
[2017-07-07] MEDS: URSODIOL 500 MG TABLET PO SCH ×3 (08:18→16:07)
[2017-07-07 12:30] VITALS: BP 133/73
[2017-07-07] MEDS: DOCUSATE SODIUM 100 MG CAPSULE PO PRN (14:21)
[2017-07-07 16:25] VITALS: BP 140/91
[2017-07-07] MEDS: LORazepam 1 MG TABLET PO SCH (20:06)
[2017-07-07] MEDS: ZOLPIDEM TARTRATE 10 MG TABLET PO PRN (20:45)
[2017-07-07 21:36] VITALS: BP 132/74
[2017-07-08 01:00] VITALS: BP 140/76
[2017-07-08] MEDS: HALOPERIDOL 5 MG TABLET PO PRN (01:00)
[2017-07-08] MEDS: LORazepam 2 MG TABLET PO PRN (01:00)
[2017-07-08 08:10] VITALS: BP 100/66
[2017-07-08] MEDS: LORazepam 1 MG TABLET PO SCH ×3 (08:12→15:58)
[2017-07-08] MEDS: RisperiDONE 3 MG TABLET PO SCH ×2 (08:13→15:57)
[2017-07-08] MEDS: ARIPiprazole 15 MG TABLET PO SCH (08:15)
[2017-07-08] MEDS: URSODIOL 500 MG TABLET PO SCH ×3 (08:15→15:58)
[2017-07-08] MEDS: DOCUSATE SODIUM 100 MG CAPSULE PO PRN (13:55)
[2017-07-08 16:01] VITALS: BP 131/84
[2017-07-08] MEDS: ZOLPIDEM TARTRATE 10 MG TABLET PO PRN (20:14)
[2017-07-09 00:55] VITALS: BP 129/92
[2017-07-09] MEDS: ACETAMINOPHEN 325 MG TABLET PO PRN ×3 (00:58→20:47)
[2017-07-09] MEDS: RisperiDONE 3 MG TABLET PO SCH ×2 (08:51→16:07)
[2017-07-09] MEDS: LORazepam 1 MG TABLET PO SCH ×3 (08:51→16:07)
[2017-07-09] MEDS: URSODIOL 500 MG TABLET PO SCH ×3 (08:51→16:07)
[2017-07-09] MEDS: ARIPiprazole 15 MG TABLET PO SCH (08:51)
[2017-07-09 09:41] VITALS: BP 106/68
[2017-07-09] MEDS: DOCUSATE SODIUM 100 MG CAPSULE PO PRN ×2 (13:13→20:26)
[2017-07-09 16:09] VITALS: BP 114/79
[2017-07-09] MEDS: ZOLPIDEM TARTRATE 10 MG TABLET PO PRN (20:46)
[2017-07-10] MEDS: LORazepam 2 MG TABLET PO PRN ×2 (01:39→12:59)
[2017-07-10 02:10] VITALS: BP 111/72
[2017-07-10] MEDS: RisperiDONE 3 MG TABLET PO SCH ×2 (08:00→16:16)
[2017-07-10] MEDS: ARIPiprazole 15 MG TABLET PO SCH (08:00)
[2017-07-10] MEDS: URSODIOL 500 MG TABLET PO SCH ×3 (08:00→16:16)
[2017-07-10] MEDS: LORazepam 1 MG TABLET PO SCH ×3 (08:00→16:16)
[2017-07-10 08:03] VITALS: BP 125/82
[2017-07-10] MEDS: ACETAMINOPHEN 325 MG TABLET PO PRN (08:03)
[2017-07-10] MEDS: DOCUSATE SODIUM 100 MG CAPSULE PO PRN ×2 (08:03→23:01)
[2017-07-10 08:41] VITALS: BP 125/82
[2017-07-10] MEDS: HALOPERIDOL 5 MG TABLET PO PRN (12:59)
[2017-07-10 17:02] VITALS: BP 116/67
[2017-07-11 00:11] VITALS: BP 124/77
[2017-07-11] MEDS: ZOLPIDEM TARTRATE 10 MG TABLET PO PRN (02:46)
[2017-07-11] MEDS: HALOPERIDOL 5 MG TABLET PO PRN (02:46)
[2017-07-11] MEDS: LORazepam 1 MG TABLET PO SCH ×3 (08:25→16:27)
[2017-07-11] MEDS: RisperiDONE 3 MG TABLET PO SCH ×2 (08:25→16:27)
[2017-07-11] MEDS: URSODIOL 500 MG TABLET PO SCH ×3 (08:25→16:27)
[2017-07-11] MEDS: ARIPiprazole 15 MG TABLET PO SCH (08:25)
[2017-07-11 09:19] VITALS: BP 118/74
[2017-07-11] MEDS: ACETAMINOPHEN 325 MG TABLET PO PRN ×2 (12:23→23:50)
[2017-07-11 17:18] VITALS: BP 148/87
[2017-07-11 23:51] VITALS: BP 132/83
[2017-07-12 02:16] VITALS: BP 106/66
[2017-07-12] MEDS: LORazepam 2 MG TABLET PO PRN (02:40)
[2017-07-12] MEDS: LORazepam 1 MG TABLET PO SCH ×3 (08:16→17:12)
[2017-07-12] MEDS: URSODIOL 500 MG TABLET PO SCH ×3 (08:16→17:12)
[2017-07-12] MEDS: RisperiDONE 3 MG TABLET PO SCH ×2 (08:16→17:12)
[2017-07-12] MEDS: ARIPiprazole 15 MG TABLET PO SCH (08:16)
[2017-07-12 09:42] VITALS: BP 96/60
[2017-07-12] MEDS: DOCUSATE SODIUM 100 MG CAPSULE PO PRN (12:33)
[2017-07-12 17:20] VITALS: BP 129/76
[2017-07-12 21:00] VITALS: BP 119/72
[2017-07-12] MEDS: ACETAMINOPHEN 325 MG TABLET PO PRN (21:05)
[2017-07-12] MEDS: ZOLPIDEM TARTRATE 10 MG TABLET PO PRN (21:05)
[2017-07-12 22:00] VITALS: BP 123/69
[2017-07-13] MEDS: RisperiDONE 3 MG TABLET PO SCH (08:15)
[2017-07-13] MEDS: URSODIOL 500 MG TABLET PO SCH ×2 (08:15→12:45)
[2017-07-13] MEDS: ARIPiprazole 15 MG TABLET PO SCH (08:15)
[2017-07-13 08:16] VITALS: BP 124/79
[2017-07-13] MEDS: ACETAMINOPHEN 325 MG TABLET PO PRN (08:16)
[2017-07-13] MEDS: LORazepam 1 MG TABLET PO SCH ×2 (08:16→12:44)
[2017-07-13] MEDS ORDERED: RISP3 PO (11:39)
[2017-07-13] MEDS ORDERED: URSO500T9 PO ×2 (11:46→11:51)
== END 2017-07-13 13:29 | DRG 885 ==
LOC: EMS 12:45 → B2X 18:31 → 3EX 05-24 20:35
PROVIDERS: ADMIT Psychiatry & Neurology Child & Adolescent Psychiatry; ATTEND Psychiatry & Neurology Psychiatry
DX: F20.0 Paranoid schizophrenia (principal); G93.41 Metabolic encephalopathy; I95.9 Hypotension, unspecified; E87.1 Hypo-osmolality and hyponatremia; R16.0 Hepatomegaly, not elsewhere classified; Z75.1 Person awaiting admission to adequate facility elsewhere; R74.0 Nonspecific elevation of levels of transaminase and lactic acid dehydrogenase [LDH]; N39.0 Urinary tract infection, site not specified; D64.9 Anemia, unspecified; I10 Essential (primary) hypertension; K59.00 Constipation, unspecified; Z91.83 Wandering in diseases classified elsewhere; Z79.899 Other long term (current) drug therapy
CPT/HCPCS: 74177; 74181; 76705; 80074; 82390; 82962; 83516; 84295; 86038; 86301; 87081; 87086; 99285; A9585; G0480; J7050

== ENCOUNTER 2017-09-30 15:35 | Emergency (ER) | payer MEDICARE ==
[~2017-09-30] VITALS: Ht 157.5 cm; Wt 59.1 kg
[~2017-09-30 15:35] MED LIST changes: -LORA0.5T2 PO; +LORA1TAB3 PO; +MUPI1OIN4 NS; +PANT40TA25 PO; +RISP3 PO; +URSO500T9 PO
[2017-09-30] MEDS ORDERED: HALO5TAB2 PO (17:36)
[2017-09-30] MEDS ORDERED: DOXY100C PO (17:36)
[2017-09-30] MEDS ORDERED: CLON1 PO (17:36)
[2017-09-30] MEDS ORDERED: ACET-784 PO (17:36)
[2017-09-30] MEDS ORDERED: ZOLP10TA7 PO (17:36)
[2017-09-30] MEDS ORDERED: MOM30 PO (17:36)
[2017-09-30] MEDS ORDERED: FE PR (17:36)
[2017-09-30] MEDS ORDERED: BISA10S PR (17:36)
[2017-09-30] MEDS ORDERED: DSS100 PO (17:36)
[2017-09-30] MEDS ORDERED: SODI30SP3 NS (17:36)
[2017-09-30] MEDS ORDERED: BUME1TAB17 PO (17:36)
[2017-09-30 18:25] LABS: AMPHET/METH SCREEN,URINE NEGATIVE (NEGATIVE); BARBITURATE SCREEN, URINE NEGATIVE (NEGATIVE); BENZODIAZEPINES SCREEN,URINE NEGATIVE (NEGATIVE); CANNABINOID SCREEN,URINE NEGATIVE (NEGATIVE); COCAINE SCREEN,URINE NEGATIVE (NEGATIVE); METHADONE SCREEN, URINE NEGATIVE (NEGATIVE); OPIATE SCREEN,URINE NEGATIVE (NEGATIVE); PHENCYCLIDINE SCREEN,URINE NEGATIVE (NEGATIVE)
[2017-09-30 19:07] VITALS: BP 128/70
== END 2017-09-30 20:20 | disposition home or self-care (01) ==
LOC: EMS 15:36
DX: R45.1 Restlessness and agitation (principal); R17 Unspecified jaundice; L02.415 Cutaneous abscess of right lower limb; I11.0 Hypertensive heart disease with heart failure; I50.9 Heart failure, unspecified; Z91.018 Allergy to other foods
CPT/HCPCS: 99284

== ENCOUNTER 2017-10-03 15:33 | Inpatient (IN) | payer MEDICARE ==
[~2017-10-03] VITALS: Ht 162.6 cm; Wt 70.0 kg
[~2017-10-03 15:33] MED LIST changes: +ACET-784 PO; +BISA10S PR; +BUME1TAB17 PO; +CLON1 PO; +DOXY100C PO; +DSS100 PO; +FE PR; +HALO5TAB2 PO; -LORA1TAB3 PO; +MOM30 PO; -MUPI1OIN4 NS; +SODI30SP3 NS; +ZOLP10TA7 PO
[2017-10-03] MEDS ORDERED: ZOLPIDEM TARTRATE 10 MG TABLET PO PRN (17:30)
[2017-10-03] MEDS ORDERED: HALOPERIDOL 5 MG TABLET PO PRN (17:30)
[2017-10-04 03:35] VITALS: BP 119/81
[2017-10-04] MEDS: BUMETANIDE 1 MG TABLET PO SCH ×2 (09:00→17:00)
[2017-10-04] MEDS: BACITRACIN 28.4 GM OINTMENT TP SCH ×2 (09:00→17:00)
[2017-10-04] MEDS: LORazepam 1 MG TABLET PO SCH ×3 (09:00→17:00)
[2017-10-04] MEDS: ASPIRIN 81 MG EC TABLET PO SCH (09:00)
[2017-10-04] MEDS: URSODIOL 500 MG TABLET PO SCH ×2 (09:00→17:00)
[2017-10-04] MEDS: RisperiDONE 3 MG TABLET PO SCH ×2 (09:41→17:00)
[2017-10-04] MEDS: DOXYCYCLINE HYCLATE 100 MG CAPSULE PO SCH ×2 (09:41→18:00)
[2017-10-04] MEDS: ARIPiprazole 15 MG TABLET PO SCH (09:41)
[2017-10-04] MEDS: DOCUSATE SODIUM 100 MG CAPSULE PO SCH ×2 (09:41→18:00)
[2017-10-04] MEDS ORDERED: IBUPROFEN 400 MG TABLET PO PRN (14:00)
[2017-10-04] MEDS ORDERED: BISACODYL 10 MG RECTAL RECTAL SUPPOSITORY PR PRN (14:00)
[2017-10-04] MEDS ORDERED: DOCUSATE SODIUM 100 MG CAPSULE PO SCH (17:00)
[2017-10-04] MEDS ORDERED: BUMETANIDE 1 MG TABLET PO SCH (17:00)
[2017-10-05 01:45] VITALS: BP 106/70
[2017-10-05 06:41] LABS: BASOPHILS % (AUTO) 2.2 % (0.0-2.0); EOSINOPHILS % (AUTO) 5.2 % (1.0-6.0); HEMATOCRIT 33.3 % (36-46); HEMOGLOBIN 11.6 g/dL (12.0-16.0); LYMPHOCYTES # (AUTO) 2.8 K/uL (1.0-4.8); LYMPHOCYTES % (AUTO) 29.6 % (22.0-44.0); MEAN CORPUSCULAR HEMOGLOBIN 32.2 pg (26.0-34.0); MEAN CORPUSCULAR VOLUME 92 fL (80-100); MONOCYTES # (AUTO) 1.1 K/uL (0.1-1.0); MONOCYTES % (AUTO) 11.3 % (2.0-9.0); NEUTROPHILS # (AUTO) 4.8 K/uL (1.8-7.7); NEUTROPHILS % (AUTO) 51.7 % (40.0-70.0); PLATELET COUNT (AUTO) 333 K/uL (150-450); RED BLOOD CELL COUNT(AUTO) 3.62 MIL/uL (4.00-5.20); RED CELL DISTRIBUTION WIDTH 17.4 % (11.5-14.5)
[2017-10-05 06:47] LABS: ALANINE AMINOTRANSFERASE 80 U/L (12-78); ALBUMIN 2.3 g/dL (3.4-5.0); ALKALINE PHOSPHATASE 951 U/L (46-116); ANION GAP 6 mmol/L (8-16); ASPARTATE AMINOTRANSFERASE 79 U/L (15-37); BILIRUBIN,TOTAL 16.9 mg/dL (0.1-1.0); CALCIUM, TOTAL 8.9 mg/dL (8.8-10.5); CARBON DIOXIDE 30 mmol/L (22-29); CHLORIDE 98 mmol/L (98-107); CHOL/HDL RATIO 42.4 (3.9-5.7); CHOLESTEROL 551 mg/dL (131-200); CREATININE 0.47 mg/dL (0.60-1.30); GLOMERULAR FILTR. RATE CALC > 60 mL/min (>60); GLUCOSE,RANDOM 101 mg/dL (70-110); HDL CHOLESTEROL 13 mg/dL (40-60); LDL CHOL (CALC.) 485 mg/dL (0-130); POTASSIUM 3.2 mmol/L (3.5-5.1); SODIUM SERUM 134 mmol/L (136-145); TOTAL PROTEIN, SERUM 6.4 g/dL (6.4-8.2); TRIGLYCERIDES 265 mg/dL (15-150); UREA NITROGEN, BLOOD 9 mg/dL (7-18)
[2017-10-05 07:43] LABS: HEMOGLOBIN A1C 4.5 % (4.5-6.2)
[2017-10-05] MEDS ORDERED: POTASSIUM CHLORIDE 20 MEQ ER TABLET PO ONE (08:45)
[2017-10-05] MEDS: RisperiDONE 3 MG TABLET PO SCH ×2 (09:00→17:00)
[2017-10-05] MEDS: URSODIOL 500 MG TABLET PO SCH ×2 (09:00→17:00)
[2017-10-05] MEDS: PANTOPRAZOLE SODIUM 40 MG DR TABLET PO SCH (09:00)
[2017-10-05] MEDS: LORazepam 1 MG TABLET PO SCH ×3 (09:00→17:00)
[2017-10-05] MEDS: BUMETANIDE 1 MG TABLET PO SCH ×2 (09:00→17:00)
[2017-10-05] MEDS: DOCUSATE SODIUM 100 MG CAPSULE PO SCH ×2 (09:00→17:00)
[2017-10-05] MEDS: ASPIRIN 81 MG EC TABLET PO SCH (09:00)
[2017-10-05] MEDS: ARIPiprazole 15 MG TABLET PO SCH (09:00)
[2017-10-05] MEDS: BACITRACIN 28.4 GM OINTMENT TP SCH ×2 (09:00→17:00)
[2017-10-05] MEDS: HALOPERIDOL LACTATE 5 MG/ML VIAL IM PRN ×2 (09:51→18:15)
[2017-10-05] MEDS: RIFAXIMIN 550 MG TABLET PO SCH (17:00)
[2017-10-06] MEDS: DOCUSATE SODIUM 100 MG CAPSULE PO SCH ×2 (09:00→16:17)
[2017-10-06] MEDS: URSODIOL 500 MG TABLET PO SCH ×2 (09:00→16:37)
[2017-10-06] MEDS: ARIPiprazole 15 MG TABLET PO SCH (09:00)
[2017-10-06] MEDS: LORazepam 1 MG TABLET PO SCH ×3 (09:00→16:37)
[2017-10-06] MEDS: BACITRACIN 28.4 GM OINTMENT TP SCH ×2 (09:00→16:37)
[2017-10-06] MEDS: RisperiDONE 3 MG TABLET PO SCH ×2 (09:00→16:37)
[2017-10-06] MEDS: RIFAXIMIN 550 MG TABLET PO SCH ×2 (09:00→16:37)
[2017-10-06] MEDS: PANTOPRAZOLE SODIUM 40 MG DR TABLET PO SCH (09:00)
[2017-10-06] MEDS: BUMETANIDE 1 MG TABLET PO SCH ×2 (09:00→16:37)
[2017-10-06] MEDS: ASPIRIN 81 MG EC TABLET PO SCH (09:00)
[2017-10-06] MEDS: HALOPERIDOL LACTATE 5 MG/ML VIAL IM PRN ×2 (09:23→16:27)
[2017-10-06] MEDS ORDERED: POTASSIUM CHLORIDE 20 MEQ ER TABLET PO ONE (10:15)
[2017-10-06] MEDS: ATORVASTATIN CALCIUM 20 MG TABLET PO SCH (20:58)
[2017-10-07] MEDS: BUMETANIDE 1 MG TABLET PO SCH ×2 (09:00→15:49)
[2017-10-07] MEDS: DOCUSATE SODIUM 100 MG CAPSULE PO SCH ×2 (09:00→15:49)
[2017-10-07] MEDS: ASPIRIN 81 MG EC TABLET PO SCH (09:00)
[2017-10-07] MEDS: RIFAXIMIN 550 MG TABLET PO SCH ×2 (09:00→15:49)
[2017-10-07] MEDS: LORazepam 1 MG TABLET PO SCH ×3 (09:00→15:49)
[2017-10-07] MEDS: BACITRACIN 28.4 GM OINTMENT TP SCH ×2 (09:00→15:51)
[2017-10-07] MEDS: URSODIOL 500 MG TABLET PO SCH ×2 (09:00→15:49)
[2017-10-07] MEDS: ARIPiprazole 15 MG TABLET PO SCH (09:00)
[2017-10-07] MEDS: PANTOPRAZOLE SODIUM 40 MG DR TABLET PO SCH (09:00)
[2017-10-07] MEDS: RisperiDONE 3 MG TABLET PO SCH ×2 (09:00→15:49)
[2017-10-07] MEDS: HALOPERIDOL LACTATE 5 MG/ML VIAL IM PRN (10:14)
[2017-10-07] MEDS: ATORVASTATIN CALCIUM 20 MG TABLET PO SCH (21:00)
[2017-10-08 04:55] VITALS: BP 121/78
[2017-10-08] MEDS: RisperiDONE 3 MG TABLET PO SCH ×2 (08:23→16:54)
[2017-10-08] MEDS: LORazepam 1 MG TABLET PO SCH ×4 (08:23→16:53)
[2017-10-08] MEDS: ARIPiprazole 15 MG TABLET PO SCH (08:23)
[2017-10-08] MEDS: PANTOPRAZOLE SODIUM 40 MG DR TABLET PO SCH (08:24)
[2017-10-08] MEDS: RIFAXIMIN 550 MG TABLET PO SCH ×2 (08:24→16:54)
[2017-10-08] MEDS: MULTIVITAMINS WITH MINERALS, THERAPEUTIC TABLET PO SCH (08:24)
[2017-10-08] MEDS: BUMETANIDE 1 MG TABLET PO SCH ×2 (08:24→16:54)
[2017-10-08] MEDS: DOCUSATE SODIUM 100 MG CAPSULE PO SCH ×2 (08:24→16:53)
[2017-10-08] MEDS: URSODIOL 500 MG TABLET PO SCH ×2 (08:24→16:54)
[2017-10-08] MEDS: ASPIRIN 81 MG EC TABLET PO SCH (08:24)
[2017-10-08] MEDS: BACITRACIN 28.4 GM OINTMENT TP SCH ×2 (09:00→16:55)
[2017-10-08] MEDS: ATORVASTATIN CALCIUM 20 MG TABLET PO SCH (20:05)
[2017-10-09 00:32] VITALS: BP 108/71
[2017-10-09 03:35] VITALS: BP 113/61
[2017-10-09 04:00] VITALS: BP 113/61
[2017-10-09 05:28] VITALS: BP 107/65
[2017-10-09] MEDS: BACITRACIN 28.4 GM OINTMENT TP SCH ×2 (09:00→16:51)
[2017-10-09] MEDS: ARIPiprazole 15 MG TABLET PO SCH (09:38)
[2017-10-09] MEDS: PANTOPRAZOLE SODIUM 40 MG DR TABLET PO SCH (09:38)
[2017-10-09] MEDS: URSODIOL 500 MG TABLET PO SCH ×2 (09:38→16:50)
[2017-10-09] MEDS: MULTIVITAMINS WITH MINERALS, THERAPEUTIC TABLET PO SCH (09:38)
[2017-10-09] MEDS: LORazepam 1 MG TABLET PO SCH ×3 (09:38→16:50)
[2017-10-09] MEDS: RIFAXIMIN 550 MG TABLET PO SCH ×2 (09:38→16:50)
[2017-10-09] MEDS: BUMETANIDE 1 MG TABLET PO SCH ×2 (09:39→16:50)
[2017-10-09] MEDS: ASPIRIN 81 MG EC TABLET PO SCH (09:39)
[2017-10-09] MEDS: DOCUSATE SODIUM 100 MG CAPSULE PO SCH ×2 (09:39→16:50)
[2017-10-09] MEDS: RisperiDONE 3 MG TABLET PO SCH ×2 (09:40→16:50)
[2017-10-09] MEDS: ATORVASTATIN CALCIUM 20 MG TABLET PO SCH (20:15)
[2017-10-10 04:05] VITALS: BP 96/72
[2017-10-10] MEDS: IBUPROFEN 600 MG TABLET PO PRN ×2 (04:07→18:10)
[2017-10-10 08:22] LABS: ALANINE AMINOTRANSFERASE 114 U/L (12-78); ALBUMIN 2.2 g/dL (3.4-5.0); ALKALINE PHOSPHATASE 986 U/L (46-116); ANION GAP 10 mmol/L (8-16); ASPARTATE AMINOTRANSFERASE 112 U/L (15-37); BILIRUBIN,TOTAL 14.4 mg/dL (0.1-1.0); CALCIUM, TOTAL 8.1 mg/dL (8.8-10.5); CARBON DIOXIDE 26 mmol/L (22-29); CHLORIDE 97 mmol/L (98-107); CREATINE KINASE, TOTAL 15 U/L (26-192); CREATININE 0.58 mg/dL (0.60-1.30); GLOMERULAR FILTR. RATE CALC > 60 mL/min (>60); GLUCOSE,RANDOM 133 mg/dL (70-110); POTASSIUM 3.3 mmol/L (3.5-5.1); SODIUM SERUM 133 mmol/L (136-145); TOTAL PROTEIN, SERUM 6.3 g/dL (6.4-8.2); UREA NITROGEN, BLOOD 18 mg/dL (7-18)
[2017-10-10 09:09] LABS: FOLATE SERUM 8.4 ng/mL (5.4-)
[2017-10-10] MEDS: RIFAXIMIN 550 MG TABLET PO SCH ×2 (09:09→17:52)
[2017-10-10] MEDS: ARIPiprazole 15 MG TABLET PO SCH (09:09)
[2017-10-10] MEDS: LORazepam 1 MG TABLET PO SCH ×3 (09:09→17:53)
[2017-10-10] MEDS: URSODIOL 500 MG TABLET PO SCH ×2 (09:09→17:53)
[2017-10-10] MEDS: PANTOPRAZOLE SODIUM 40 MG DR TABLET PO SCH (09:09)
[2017-10-10] MEDS: MULTIVITAMINS WITH MINERALS, THERAPEUTIC TABLET PO SCH (09:09)
[2017-10-10] MEDS: BUMETANIDE 1 MG TABLET PO SCH ×2 (09:09→17:53)
[2017-10-10] MEDS: ASPIRIN 81 MG EC TABLET PO SCH (09:09)
[2017-10-10] MEDS: DOCUSATE SODIUM 100 MG CAPSULE PO SCH ×2 (09:09→17:52)
[2017-10-10] MEDS: RisperiDONE 3 MG TABLET PO SCH ×2 (09:09→17:53)
[2017-10-10] MEDS ORDERED: POTASSIUM CHLORIDE 20 MEQ ER TABLET PO ONE (10:30)
[2017-10-10] MEDS: BACITRACIN 28.4 GM OINTMENT TP SCH ×2 (15:15→17:00)
[2017-10-10 18:05] VITALS: BP 104/68
[2017-10-10 19:10] VITALS: BP 102/65
[2017-10-10] MEDS: ATORVASTATIN CALCIUM 20 MG TABLET PO SCH (20:45)
[2017-10-11] MEDS: IBUPROFEN 600 MG TABLET PO PRN (03:47)
[2017-10-11 03:55] VITALS: BP 102/64
[2017-10-11] MEDS: MAGNESIUM HYDROXIDE SUSPENSION 30 ML UDCUP PO PRN (07:08)
[2017-10-11] MEDS: BACITRACIN 28.4 GM OINTMENT TP SCH ×2 (09:00→16:32)
[2017-10-11] MEDS: RisperiDONE 3 MG TABLET PO SCH ×2 (09:31→16:32)
[2017-10-11] MEDS: ASPIRIN 81 MG EC TABLET PO SCH (09:31)
[2017-10-11] MEDS: ARIPiprazole 15 MG TABLET PO SCH (09:31)
[2017-10-11] MEDS: PANTOPRAZOLE SODIUM 40 MG DR TABLET PO SCH (09:31)
[2017-10-11] MEDS: RIFAXIMIN 550 MG TABLET PO SCH ×2 (09:31→16:32)
[2017-10-11] MEDS: LORazepam 1 MG TABLET PO SCH ×3 (09:32→16:32)
[2017-10-11] MEDS: MULTIVITAMINS WITH MINERALS, THERAPEUTIC TABLET PO SCH (09:32)
[2017-10-11] MEDS: BUMETANIDE 1 MG TABLET PO SCH ×2 (09:32→16:32)
[2017-10-11] MEDS: DOCUSATE SODIUM 100 MG CAPSULE PO SCH ×2 (09:32→16:32)
[2017-10-11] MEDS: URSODIOL 500 MG TABLET PO SCH ×2 (09:32→16:32)
[2017-10-11 18:16] VITALS: BP 100/70
[2017-10-11] MEDS: ATORVASTATIN CALCIUM 20 MG TABLET PO SCH (20:10)
[2017-10-12 00:15] VITALS: BP 100/68
[2017-10-12] MEDS: ARIPiprazole 15 MG TABLET PO SCH (08:39)
[2017-10-12] MEDS: LORazepam 1 MG TABLET PO SCH ×4 (08:39→16:01)
[2017-10-12] MEDS: URSODIOL 500 MG TABLET PO SCH ×2 (08:40→16:00)
[2017-10-12] MEDS: DOCUSATE SODIUM 100 MG CAPSULE PO SCH ×2 (08:40→16:00)
[2017-10-12] MEDS: ASPIRIN 81 MG EC TABLET PO SCH (08:40)
[2017-10-12] MEDS: MULTIVITAMINS WITH MINERALS, THERAPEUTIC TABLET PO SCH (08:40)
[2017-10-12] MEDS: PANTOPRAZOLE SODIUM 40 MG DR TABLET PO SCH (08:40)
[2017-10-12] MEDS: RisperiDONE 3 MG TABLET PO SCH ×2 (08:40→16:00)
[2017-10-12] MEDS: BUMETANIDE 1 MG TABLET PO SCH ×2 (08:40→16:01)
[2017-10-12] MEDS: RIFAXIMIN 550 MG TABLET PO SCH ×2 (08:41→16:01)
[2017-10-12] MEDS: BACITRACIN 28.4 GM OINTMENT TP SCH ×2 (09:00→16:01)
[2017-10-12] MEDS: IBUPROFEN 600 MG TABLET PO PRN (15:13)
[2017-10-12 16:13] VITALS: BP 110/64
[2017-10-12] MEDS: ATORVASTATIN CALCIUM 20 MG TABLET PO SCH (20:32)
[2017-10-12] MEDS: MAGNESIUM HYDROXIDE SUSPENSION 30 ML UDCUP PO PRN (22:37)
[2017-10-13] VITALS (11 sets, daily range): BP systolic 91–118; BP diastolic 57–74
[2017-10-13] MEDS: IBUPROFEN 600 MG TABLET PO PRN ×2 (02:47→21:34)
[2017-10-13] MEDS: LORazepam 1 MG TABLET PO PRN (04:41)
[2017-10-13 07:16] LABS: ANION GAP 6 mmol/L (8-16); CALCIUM, TOTAL 8.5 mg/dL (8.8-10.5); CARBON DIOXIDE 31 mmol/L (22-29); CHLORIDE 99 mmol/L (98-107); CREATININE 0.61 mg/dL (0.60-1.30); GLOMERULAR FILTR. RATE CALC > 60 mL/min (>60); GLUCOSE,RANDOM 96 mg/dL (70-110); POTASSIUM 3.7 mmol/L (3.5-5.1); SODIUM SERUM 136 mmol/L (136-145); UREA NITROGEN, BLOOD 27 mg/dL (7-18)
[2017-10-13] MEDS: URSODIOL 500 MG TABLET PO SCH ×2 (08:40→16:25)
[2017-10-13] MEDS: PANTOPRAZOLE SODIUM 40 MG DR TABLET PO SCH (08:40)
[2017-10-13] MEDS: RisperiDONE 3 MG TABLET PO SCH ×2 (08:40→16:25)
[2017-10-13] MEDS: BUMETANIDE 1 MG TABLET PO SCH ×2 (08:40→16:26)
[2017-10-13] MEDS: RIFAXIMIN 550 MG TABLET PO SCH ×2 (08:40→16:25)
[2017-10-13] MEDS: ARIPiprazole 15 MG TABLET PO SCH (08:40)
[2017-10-13] MEDS: LORazepam 1 MG TABLET PO SCH ×3 (08:41→16:25)
[2017-10-13] MEDS: ASPIRIN 81 MG EC TABLET PO SCH (08:41)
[2017-10-13] MEDS: DOCUSATE SODIUM 100 MG CAPSULE PO SCH ×2 (08:41→16:26)
[2017-10-13] MEDS: MULTIVITAMINS WITH MINERALS, THERAPEUTIC TABLET PO SCH (08:41)
[2017-10-13] MEDS: BACITRACIN 28.4 GM OINTMENT TP SCH ×2 (08:42→17:00)
[2017-10-13] MEDS: ATORVASTATIN CALCIUM 20 MG TABLET PO SCH (20:53)
[2017-10-14 01:00] VITALS: BP 89/62
[2017-10-14 07:06] VITALS: BP 95/69
[2017-10-14] MEDS: RIFAXIMIN 550 MG TABLET PO SCH ×2 (08:40→17:59)
[2017-10-14] MEDS: URSODIOL 500 MG TABLET PO SCH ×2 (08:40→17:59)
[2017-10-14] MEDS: MULTIVITAMINS WITH MINERALS, THERAPEUTIC TABLET PO SCH (08:41)
[2017-10-14] MEDS: LORazepam 1 MG TABLET PO SCH ×3 (08:41→18:11)
[2017-10-14] MEDS: BUMETANIDE 1 MG TABLET PO SCH ×2 (08:41→17:59)
[2017-10-14] MEDS: ARIPiprazole 15 MG TABLET PO SCH (08:41)
[2017-10-14] MEDS: DOCUSATE SODIUM 100 MG CAPSULE PO SCH ×2 (08:41→18:11)
[2017-10-14] MEDS: ASPIRIN 81 MG EC TABLET PO SCH (08:41)
[2017-10-14] MEDS: RisperiDONE 3 MG TABLET PO SCH ×2 (08:41→18:00)
[2017-10-14] MEDS: PANTOPRAZOLE SODIUM 40 MG DR TABLET PO SCH (08:41)
[2017-10-14] MEDS: IBUPROFEN 600 MG TABLET PO PRN ×2 (08:51→14:52)
[2017-10-14 16:43] VITALS: BP 106/65
[2017-10-14] MEDS: ATORVASTATIN CALCIUM 20 MG TABLET PO SCH (20:25)
[2017-10-15 01:35] VITALS: BP 108/58
[2017-10-15] MEDS: IBUPROFEN 600 MG TABLET PO PRN ×3 (01:40→20:01)
[2017-10-15] MEDS: URSODIOL 500 MG TABLET PO SCH ×2 (08:05→16:51)
[2017-10-15] MEDS: RIFAXIMIN 550 MG TABLET PO SCH ×2 (08:05→16:51)
[2017-10-15] MEDS: BUMETANIDE 1 MG TABLET PO SCH ×2 (08:05→16:51)
[2017-10-15] MEDS: ASPIRIN 81 MG EC TABLET PO SCH (08:05)
[2017-10-15] MEDS: ARIPiprazole 15 MG TABLET PO SCH (08:05)
[2017-10-15] MEDS: PANTOPRAZOLE SODIUM 40 MG DR TABLET PO SCH (08:06)
[2017-10-15] MEDS: RisperiDONE 3 MG TABLET PO SCH ×2 (08:06→16:51)
[2017-10-15] MEDS: DOCUSATE SODIUM 100 MG CAPSULE PO SCH ×2 (08:06→16:51)
[2017-10-15] MEDS: MULTIVITAMINS WITH MINERALS, THERAPEUTIC TABLET PO SCH (08:06)
[2017-10-15] MEDS: LORazepam 1 MG TABLET PO SCH ×3 (08:06→16:51)
[2017-10-15 08:34] VITALS: BP 124/74
[2017-10-15 09:34] VITALS: BP 118/72
[2017-10-15] MEDS: MAGNESIUM HYDROXIDE SUSPENSION 30 ML UDCUP PO PRN (12:04)
[2017-10-15 19:59] VITALS: BP 115/79
[2017-10-15] MEDS: ATORVASTATIN CALCIUM 20 MG TABLET PO SCH (20:01)
[2017-10-16 03:50] VITALS: BP 93/65
[2017-10-16] MEDS: IBUPROFEN 600 MG TABLET PO PRN ×2 (04:00→14:43)
[2017-10-16 09:03] VITALS: BP 121/76
[2017-10-16] MEDS: PANTOPRAZOLE SODIUM 40 MG DR TABLET PO SCH (09:26)
[2017-10-16] MEDS: ASPIRIN 81 MG EC TABLET PO SCH (09:26)
[2017-10-16] MEDS: DOCUSATE SODIUM 100 MG CAPSULE PO SCH ×2 (09:26→17:04)
[2017-10-16] MEDS: MULTIVITAMINS WITH MINERALS, THERAPEUTIC TABLET PO SCH (09:26)
[2017-10-16] MEDS: LORazepam 1 MG TABLET PO SCH ×3 (09:26→17:04)
[2017-10-16] MEDS: RisperiDONE 3 MG TABLET PO SCH ×2 (09:26→17:04)
[2017-10-16] MEDS: RIFAXIMIN 550 MG TABLET PO SCH ×2 (09:27→17:04)
[2017-10-16] MEDS: ARIPiprazole 15 MG TABLET PO SCH (09:27)
[2017-10-16] MEDS: BUMETANIDE 1 MG TABLET PO SCH ×2 (09:27→17:04)
[2017-10-16] MEDS: URSODIOL 500 MG TABLET PO SCH ×2 (09:28→17:06)
[2017-10-16] MEDS: MAGNESIUM HYDROXIDE SUSPENSION 30 ML UDCUP PO PRN ×2 (10:11→21:22)
[2017-10-16 14:48] VITALS: BP 104/74
[2017-10-16 16:00] VITALS: BP 121/88
[2017-10-16] MEDS: ATORVASTATIN CALCIUM 20 MG TABLET PO SCH (20:04)
[2017-10-17 00:56] VITALS: BP 98/60
[2017-10-17 08:00] VITALS: BP 107/66
[2017-10-17] MEDS: ASPIRIN 81 MG EC TABLET PO SCH (08:24)
[2017-10-17] MEDS: PANTOPRAZOLE SODIUM 40 MG DR TABLET PO SCH (08:24)
[2017-10-17] MEDS: MULTIVITAMINS WITH MINERALS, THERAPEUTIC TABLET PO SCH (08:24)
[2017-10-17] MEDS: RisperiDONE 3 MG TABLET PO SCH ×2 (08:24→16:01)
[2017-10-17] MEDS: LORazepam 1 MG TABLET PO SCH ×3 (08:24→16:01)
[2017-10-17] MEDS: URSODIOL 500 MG TABLET PO SCH ×2 (08:24→16:01)
[2017-10-17] MEDS: RIFAXIMIN 550 MG TABLET PO SCH ×2 (08:24→16:01)
[2017-10-17] MEDS: DOCUSATE SODIUM 100 MG CAPSULE PO SCH ×2 (08:25→16:01)
[2017-10-17] MEDS: BUMETANIDE 1 MG TABLET PO SCH ×2 (08:25→16:01)
[2017-10-17] MEDS: ARIPiprazole 15 MG TABLET PO SCH (08:25)
[2017-10-17] MEDS: MAGNESIUM HYDROXIDE SUSPENSION 30 ML UDCUP PO PRN (10:28)
[2017-10-17 17:03] VITALS: BP 96/60
[2017-10-17] MEDS: MAG HYDROX/AL HYDROX/SIMETH ES 30 ML SUSPENSION UDCUP PO PRN (17:07)
[2017-10-17] MEDS: ATORVASTATIN CALCIUM 20 MG TABLET PO SCH (20:27)
[2017-10-17 20:28] VITALS: BP 101/63
[2017-10-17] MEDS: IBUPROFEN 600 MG TABLET PO PRN (20:28)
[2017-10-17 21:28] VITALS: BP 96/59
[2017-10-18 00:43] VITALS: BP 111/65
[2017-10-18] MEDS: MAG HYDROX/AL HYDROX/SIMETH ES 30 ML SUSPENSION UDCUP PO PRN ×2 (06:43→10:37)
[2017-10-18] MEDS: ARIPiprazole 15 MG TABLET PO SCH (08:18)
[2017-10-18] MEDS: MULTIVITAMINS WITH MINERALS, THERAPEUTIC TABLET PO SCH (08:19)
[2017-10-18] MEDS: RisperiDONE 3 MG TABLET PO SCH ×2 (08:19→20:03)
[2017-10-18] MEDS: DOCUSATE SODIUM 100 MG CAPSULE PO SCH ×2 (08:19→20:14)
[2017-10-18] MEDS: LORazepam 1 MG TABLET PO SCH ×3 (08:19→17:00)
[2017-10-18] MEDS: PANTOPRAZOLE SODIUM 40 MG DR TABLET PO SCH (08:19)
[2017-10-18] MEDS: ASPIRIN 81 MG EC TABLET PO SCH (08:19)
[2017-10-18] MEDS: BUMETANIDE 1 MG TABLET PO SCH ×2 (08:19→20:03)
[2017-10-18] MEDS: RIFAXIMIN 550 MG TABLET PO SCH ×2 (08:20→20:03)
[2017-10-18] MEDS: URSODIOL 500 MG TABLET PO SCH ×2 (08:20→20:04)
[2017-10-18 08:22] VITALS: BP 115/75
[2017-10-18] MEDS: IBUPROFEN 600 MG TABLET PO PRN (08:22)
[2017-10-18] MEDS: MAGNESIUM HYDROXIDE SUSPENSION 30 ML UDCUP PO PRN (10:38)
[2017-10-18] MEDS: ATORVASTATIN CALCIUM 20 MG TABLET PO SCH (20:03)
[2017-10-18 20:14] VITALS: BP 111/67
[2017-10-19] MEDS: ASPIRIN 81 MG EC TABLET PO SCH (09:00)
[2017-10-19] MEDS: PANTOPRAZOLE SODIUM 40 MG DR TABLET PO SCH (09:00)
[2017-10-19] MEDS: DOCUSATE SODIUM 100 MG CAPSULE PO SCH ×2 (09:00→17:39)
[2017-10-19] MEDS: LORazepam 1 MG TABLET PO SCH ×3 (09:00→17:40)
[2017-10-19] MEDS: RIFAXIMIN 550 MG TABLET PO SCH ×2 (09:00→17:40)
[2017-10-19] MEDS: URSODIOL 500 MG TABLET PO SCH ×2 (09:00→17:39)
[2017-10-19] MEDS: MULTIVITAMINS WITH MINERALS, THERAPEUTIC TABLET PO SCH (09:00)
[2017-10-19] MEDS: BUMETANIDE 1 MG TABLET PO SCH ×2 (09:00→17:39)
[2017-10-19 09:41] VITALS: BP 102/69
[2017-10-19] MEDS: ARIPiprazole 15 MG TABLET PO SCH (10:34)
[2017-10-19] MEDS: RisperiDONE 3 MG TABLET PO SCH ×2 (10:34→17:39)
[2017-10-19] MEDS: IBUPROFEN 600 MG TABLET PO PRN (17:45)
[2017-10-19] MEDS: ATORVASTATIN CALCIUM 20 MG TABLET PO SCH (20:40)
[2017-10-19] MEDS: MAGNESIUM HYDROXIDE SUSPENSION 30 ML UDCUP PO PRN (21:17)
[2017-10-20 05:28] VITALS: BP 95/63
[2017-10-20] MEDS: MULTIVITAMINS WITH MINERALS, THERAPEUTIC TABLET PO SCH (08:43)
[2017-10-20] MEDS: RisperiDONE 3 MG TABLET PO SCH ×2 (08:43→16:32)
[2017-10-20] MEDS: ARIPiprazole 15 MG TABLET PO SCH (08:44)
[2017-10-20] MEDS: LORazepam 1 MG TABLET PO SCH ×3 (08:44→16:33)
[2017-10-20] MEDS: RIFAXIMIN 550 MG TABLET PO SCH ×2 (08:44→16:32)
[2017-10-20] MEDS: BUMETANIDE 1 MG TABLET PO SCH ×2 (08:44→16:32)
[2017-10-20] MEDS: URSODIOL 500 MG TABLET PO SCH ×2 (08:44→16:32)
[2017-10-20] MEDS: PANTOPRAZOLE SODIUM 40 MG DR TABLET PO SCH (08:44)
[2017-10-20] MEDS: ASPIRIN 81 MG EC TABLET PO SCH (08:44)
[2017-10-20] MEDS: DOCUSATE SODIUM 100 MG CAPSULE PO SCH ×2 (08:44→16:32)
[2017-10-20] MEDS: IBUPROFEN 600 MG TABLET PO PRN ×2 (08:45→16:33)
[2017-10-20 08:51] VITALS: BP 117/58
[2017-10-20 16:30] VITALS: BP 98/59
[2017-10-20] MEDS: BACITRACIN 28.4 GM OINTMENT TP SCH (16:32)
[2017-10-20 17:33] VITALS: BP 115/60
[2017-10-20] MEDS: ATORVASTATIN CALCIUM 20 MG TABLET PO SCH (20:21)
[2017-10-21 02:15] VITALS: BP 101/64
[2017-10-21] MEDS: IBUPROFEN 600 MG TABLET PO PRN ×3 (02:18→16:15)
[2017-10-21 08:00] VITALS: BP 97/63
[2017-10-21 08:13] VITALS: BP 111/70
[2017-10-21] MEDS: RIFAXIMIN 550 MG TABLET PO SCH ×2 (08:22→16:13)
[2017-10-21] MEDS: ASPIRIN 81 MG EC TABLET PO SCH (08:22)
[2017-10-21] MEDS: RisperiDONE 3 MG TABLET PO SCH ×2 (08:23→16:13)
[2017-10-21] MEDS: MULTIVITAMINS WITH MINERALS, THERAPEUTIC TABLET PO SCH (08:23)
[2017-10-21] MEDS: ARIPiprazole 15 MG TABLET PO SCH (08:23)
[2017-10-21] MEDS: URSODIOL 500 MG TABLET PO SCH ×2 (08:23→16:13)
[2017-10-21] MEDS: LORazepam 1 MG TABLET PO SCH ×3 (08:23→16:13)
[2017-10-21] MEDS: BUMETANIDE 1 MG TABLET PO SCH ×2 (08:23→16:13)
[2017-10-21] MEDS: DOCUSATE SODIUM 100 MG CAPSULE PO SCH ×2 (08:23→16:13)
[2017-10-21] MEDS: PANTOPRAZOLE SODIUM 40 MG DR TABLET PO SCH (08:23)
[2017-10-21] MEDS: BACITRACIN 28.4 GM OINTMENT TP SCH ×2 (08:24→16:14)
[2017-10-21] MEDS: MAGNESIUM HYDROXIDE SUSPENSION 30 ML UDCUP PO PRN (08:38)
[2017-10-21 09:50] VITALS: BP 103/66
[2017-10-21 16:15] VITALS: BP 101/64
[2017-10-21 17:15] VITALS: BP 110/70
[2017-10-21] MEDS: ATORVASTATIN CALCIUM 20 MG TABLET PO SCH (20:46)
[2017-10-22 00:10] VITALS: BP 104/67
[2017-10-22] MEDS: IBUPROFEN 600 MG TABLET PO PRN ×2 (00:21→08:50)
[2017-10-22] MEDS: LORazepam 1 MG TABLET PO PRN (03:10)
[2017-10-22] MEDS: MAGNESIUM HYDROXIDE SUSPENSION 30 ML UDCUP PO PRN ×2 (05:12→22:08)
[2017-10-22 08:10] VITALS: BP 104/72
[2017-10-22] MEDS: ARIPiprazole 15 MG TABLET PO SCH (08:44)
[2017-10-22] MEDS: DOCUSATE SODIUM 100 MG CAPSULE PO SCH ×2 (08:44→17:30)
[2017-10-22] MEDS: ASPIRIN 81 MG EC TABLET PO SCH (08:44)
[2017-10-22] MEDS: PANTOPRAZOLE SODIUM 40 MG DR TABLET PO SCH (08:44)
[2017-10-22] MEDS: RisperiDONE 3 MG TABLET PO SCH ×2 (08:44→17:30)
[2017-10-22] MEDS: BUMETANIDE 1 MG TABLET PO SCH ×2 (08:44→17:30)
[2017-10-22] MEDS: LORazepam 1 MG TABLET PO SCH ×3 (08:44→20:24)
[2017-10-22] MEDS: MULTIVITAMINS WITH MINERALS, THERAPEUTIC TABLET PO SCH (08:44)
[2017-10-22] MEDS: RIFAXIMIN 550 MG TABLET PO SCH ×2 (08:44→17:30)
[2017-10-22 09:50] VITALS: BP 110/63
[2017-10-22] MEDS: URSODIOL 500 MG TABLET PO SCH ×2 (12:33→17:30)
[2017-10-22] MEDS: BACITRACIN 28.4 GM OINTMENT TP SCH ×2 (13:49→20:20)
[2017-10-22 17:00] VITALS: BP 115/67
[2017-10-22] MEDS: ATORVASTATIN CALCIUM 20 MG TABLET PO SCH (21:00)
[2017-10-23 09:00] VITALS: BP 111/60
[2017-10-23] MEDS: ARIPiprazole 15 MG TABLET PO SCH (09:12)
[2017-10-23] MEDS: BUMETANIDE 1 MG TABLET PO SCH ×2 (09:12→16:46)
[2017-10-23] MEDS: LORazepam 1 MG TABLET PO SCH ×3 (09:13→17:00)
[2017-10-23] MEDS: URSODIOL 500 MG TABLET PO SCH ×2 (09:14→16:47)
[2017-10-23] MEDS: RisperiDONE 3 MG TABLET PO SCH ×2 (09:14→16:47)
[2017-10-23] MEDS: PANTOPRAZOLE SODIUM 40 MG DR TABLET PO SCH (09:14)
[2017-10-23] MEDS: RIFAXIMIN 550 MG TABLET PO SCH ×2 (09:14→16:46)
[2017-10-23] MEDS: MULTIVITAMINS WITH MINERALS, THERAPEUTIC TABLET PO SCH (09:14)
[2017-10-23] MEDS: DOCUSATE SODIUM 100 MG CAPSULE PO SCH ×2 (09:14→16:55)
[2017-10-23] MEDS: ASPIRIN 81 MG EC TABLET PO SCH (09:14)
[2017-10-23] MEDS: BACITRACIN 28.4 GM OINTMENT TP SCH ×2 (13:10→17:00)
[2017-10-23 16:01] VITALS: BP 100/59
[2017-10-23] MEDS: ATORVASTATIN CALCIUM 20 MG TABLET PO SCH (20:08)
[2017-10-23] MEDS: IBUPROFEN 600 MG TABLET PO PRN (20:29)
[2017-10-24] MEDS: MAGNESIUM HYDROXIDE SUSPENSION 30 ML UDCUP PO PRN (00:12)
[2017-10-24] MEDS: IBUPROFEN 600 MG TABLET PO PRN (03:43)
[2017-10-24 03:47] VITALS: BP 101/75
[2017-10-24] MEDS: BUMETANIDE 1 MG TABLET PO SCH (08:27)
[2017-10-24] MEDS: ARIPiprazole 15 MG TABLET PO SCH (08:28)
[2017-10-24] MEDS: PANTOPRAZOLE SODIUM 40 MG DR TABLET PO SCH (08:28)
[2017-10-24] MEDS: DOCUSATE SODIUM 100 MG CAPSULE PO SCH (08:28)
[2017-10-24] MEDS: RisperiDONE 3 MG TABLET PO SCH (08:28)
[2017-10-24] MEDS: MULTIVITAMINS WITH MINERALS, THERAPEUTIC TABLET PO SCH (08:28)
[2017-10-24] MEDS: LORazepam 1 MG TABLET PO SCH ×2 (08:28→12:31)
[2017-10-24] MEDS: ASPIRIN 81 MG EC TABLET PO SCH (08:28)
[2017-10-24] MEDS: RIFAXIMIN 550 MG TABLET PO SCH (08:28)
[2017-10-24] MEDS: URSODIOL 500 MG TABLET PO SCH (08:29)
[2017-10-24 08:30] VITALS: BP 99/62
[2017-10-24] MEDS ORDERED: LORA1TAB3 PO (11:17)
[2017-10-24] MEDS ORDERED: ASPI-1182 PO (11:19)
[2017-10-24] MEDS ORDERED: ATOR20TA86 PO (11:19)
[2017-10-24] MEDS ORDERED: MULT-1239 PO (11:21)
[2017-10-24] MEDS ORDERED: BACI120O TP (11:21)
[2017-10-24] MEDS ORDERED: RIFAX550 PO (11:29)
[2017-10-24] MEDS: BACITRACIN 28.4 GM OINTMENT TP SCH (13:55)
== END 2017-10-24 13:30 | DRG 885 ==
LOC: 3EX 17:53
PROVIDERS: ADMIT Psychiatry & Neurology Psychiatry; ATTEND Psychiatry & Neurology Psychiatry
DX: F20.0 Paranoid schizophrenia (principal); K74.3 Primary biliary cirrhosis; E87.1 Hypo-osmolality and hyponatremia; R45.851 Suicidal ideations; L03.90 Cellulitis, unspecified; E78.5 Hyperlipidemia, unspecified; E87.6 Hypokalemia; K59.09 Other constipation; F32.9 Major depressive disorder, single episode, unspecified; F41.9 Anxiety disorder, unspecified; G47.00 Insomnia, unspecified; I10 Essential (primary) hypertension; K21.9 Gastro-esophageal reflux disease without esophagitis; D64.9 Anemia, unspecified; R45.1 Restlessness and agitation; R45.87 Impulsiveness; Z91.013 Allergy to seafood; Z79.899 Other long term (current) drug therapy; Z79.82 Long term (current) use of aspirin; Z91.14 Patient's other noncompliance with medication regimen
CPT/HCPCS: 70450; 82306; 82607; 82746; 83036; 84132; 84443; 87081; J1630